=== PATIENT | male | born 1930 | race Caucasian/White ===

== ENCOUNTER → 2017-05-28 | Outpatient (CLI) | payer MEDICARE, BC ==
[2017-05-28 10:16] LABS: Appearance,Urine Clear (Clear); Bilirubin,Urine Negative (Negative); Blood,Urine Negative (Negative); Color,Urine Yellow; Glucose,Urine (UA) Negative (Negative); Ketones,Urine Negative (Negative); Leukocyte Esterase,Urine Negative (Negative); Nitrite,Urine Negative (Negative); Protein,Urine Negative (Negative); Specific Gravity,Urine 1.016 (1.001-1.035); Urobilinogen,Urine <2.0 mg/dL (<2.0)
[2017-05-28 10:23] LABS: HCT 44.7 % (39.0-53.0); HGB 14.5 gm/dL (13.0-17.5); MCH 32.6 pg (25.0-35.0); MCHC 32.5 g/dL (31.0-37.0); MCV 100.1 fL (80.0-100.0); Mean Platelet Volume 6.9; Platelet Count 351 k/uL (150-450); RBC 4.47 m/uL (4.30-5.90); RDW 12.8 % (11.5-15.5); WBC 9.4 k/uL (3.8-10.6)
[2017-05-28 10:28] LABS: Albumin 4.2 g/dL (3.5-5.0); Calcium 10.2 mg/dL (8.4-10.2); Phosphorus 3.9 mg/dL (2.5-4.5); Potassium 4.8 mmol/L (3.5-5.1); Total Bilirubin 0.8 mg/dL (0.2-1.3); Total Protein 7.2 g/dL (6.3-8.2)
== END | disposition home or self-care (01) ==
LOC: LABWHC1 09:57
PROVIDERS: ATTEND Internal Medicine
DX: D64.9 Anemia, unspecified (principal); N39.0 Urinary tract infection, site not specified; E83.39 Other disorders of phosphorus metabolism
CPT/HCPCS: 36415; 80053; 81003; 84100; 85027

== ENCOUNTER → 2017-06-10 | Outpatient (CLI) | payer MEDICARE, BC ==
--- NOTE | 2017-06-10 11:03 | US ---
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 EXAM MEASUREMENTS: Right Kidney: 9.4 x 4.8 x 5.0 cm Left Kidney: 10.7 x 4.3 x 4.5 cm Right Kidney: No hydronephrosis or masses seen Left Kidney: No hydronephrosis or masses seen Bladder: wnl Bilateral Jets seen: Yes There is no evidence for hydronephrosis at this point in time. No nephrolithiasis is seen. No rocky s are identified. The urinary bladder is anechoic. Bilateral ureteral jets are seen. IMPRESSION: No significant abnormality appreciated.
== END | disposition home or self-care (01) ==
LOC: RADUSWWP 09:59
PROVIDERS: ATTEND Internal Medicine
DX: N18.3 Chronic kidney disease, stage 3 (moderate) (principal)
CPT/HCPCS: 76770

== ENCOUNTER → 2017-08-18 | Outpatient (CLI) | payer MEDICARE, BC ==
[2017-08-18 11:46] LABS: Appearance,Urine Clear (Clear); Bilirubin,Urine Negative (Negative); Blood,Urine Negative (Negative); Color,Urine Yellow; Glucose,Urine (UA) Negative (Negative); Ketones,Urine Negative (Negative); Leukocyte Esterase,Urine Negative (Negative); Nitrite,Urine Negative (Negative); PH, Urine 6.5 (5.0-8.0); Protein,Urine Trace (Negative); Specific Gravity,Urine 1.022 (1.001-1.035); Urobilinogen,Urine <2.0 mg/dL (<2.0)
[2017-08-18 11:48] LABS: HCT 42.9 % (39.0-53.0); HGB 14.9 gm/dL (13.0-17.5); MCH 33.3 pg (25.0-35.0); MCHC 34.6 g/dL (31.0-37.0); MCV 96.3 fL (80.0-100.0); Mean Platelet Volume 7.3; Platelet Count 307 k/uL (150-450); RBC 4.46 m/uL (4.30-5.90); RDW 12.4 % (11.5-15.5); WBC 7.5 k/uL (3.8-10.6)
[2017-08-18 12:05] LABS: Total Protein 7.1 g/dL (6.3-8.2); Uric Acid 7.4 mg/dL (3.5-8.5)
[2017-08-18 12:06] LABS: Phosphorus 2.9 mg/dL (2.5-4.5); Potassium 4.5 mmol/L (3.5-5.1); Total Bilirubin 0.7 mg/dL (0.2-1.3)
[2017-08-18 15:04] LABS: Iron Saturation 36.19 (15.00-50.00)
[2017-08-18 15:15] LABS: Vitamin D 25 Hydroxy 37.2 ng/mL (30.0-100.0)
[2017-08-18 17:05] LABS: Parathyroid Hormone Intact 24.3 pg/mL (14.0-72.0)
== END | disposition home or self-care (01) ==
LOC: LABWHC1 11:08
PROVIDERS: ATTEND Psychiatry & Neurology Neurology
DX: R80.9 Proteinuria, unspecified (principal); N39.0 Urinary tract infection, site not specified; E55.9 Vitamin D deficiency, unspecified; M10.9 Gout, unspecified; E21.3 Hyperparathyroidism, unspecified; N18.3 Chronic kidney disease, stage 3 (moderate); D63.1 Anemia in chronic kidney disease; R25.1 Tremor, unspecified
CPT/HCPCS: 36415; 80053; 81003; 82043; 82306; 82570; 82728; 83540; 83550; 83735; 83970; 84100; 84550; 85027

== ENCOUNTER → 2017-08-28 | Outpatient (CLI) | payer MEDICARE, BC ==
--- NOTE | 2017-08-28 11:59 | MR ---
EXAMINATION TYPE: MR brain wo/w con DATE OF EXAM: 08/28/2017 COMPARISON: NONE HISTORY: Malignant neoplasm of cerebrum, brain tumor per order. Tremors per patient. TECHNIQUE: Multiplanar, multisequence images of the brain and brainstem is performed without and with IV contras t, utilizing 9 mL intravenous Gadavist . FINDINGS: Diffusion weighted images demonstrate no evidence of a recent infarct or other diffusion ab normality. There is no worrisome extra-axial fluid collection. There is ventricular and sulcal promi nence consistent with diffuse age-related cerebral atrophy. Degree of ventricular prominence is sligh tly out of proportion to degree of sulcal effacement and a normal pressure hydrocephalus is not exclu ded. There are scattered foci of T2 hyperintensity seen throughout the superficial and deep white mat ter most prominent with more confluent appearance in the periventricular white matter. Lesions are li mandi on basis of product of chronic small vessel ischemic change in patient this age. There is presum ed artifact inferiorly anterior left cerebellum on FLAIR images without suspicious signal seen on T1, postcontrast, or T2-weighted images. Midline structures demonstrate normal morphology. The craniocervical junction appears within normal limits. Post contrast images demonstrate no abnormal enhancement. The dural venous sinuses appear pa tent. The visualized sinuses are clear and the globes are intact. IMPRESSION: Fairly moderate diffuse cerebral atrophy and moderate to severe chronic small vessel isch emic change. No suspicious enhancing mass. Correlation with old outside CT or MRI would be beneficial to assess ventricular sizes.
== END | disposition home or self-care (01) ==
LOC: RADMRIMAIN 10:35
PROVIDERS: ATTEND Psychiatry & Neurology Neurology
DX: C71.9 Malignant neoplasm of brain, unspecified (principal); G31.9 Degenerative disease of nervous system, unspecified; I67.82 Cerebral ischemia
CPT/HCPCS: 70553; A9581

== ENCOUNTER → 2017-12-24 | Outpatient (CLI) | payer MEDICARE, BC ==
[2017-12-24 09:42] LABS: HCT 40.4 % (39.0-53.0); HGB 13.5 gm/dL (13.0-17.5); MCHC 33.5 g/dL (31.0-37.0); MCV 98.5 fL (80.0-100.0); Mean Platelet Volume 6.8; Platelet Count 275 k/uL (150-450); WBC 7.8 k/uL (3.8-10.6)
[2017-12-24 10:06] LABS: Albumin 4.1 g/dL (3.5-5.0); Calcium 9.4 mg/dL (8.4-10.2); Potassium 4.9 mmol/L (3.5-5.1); Total Bilirubin 0.9 mg/dL (0.2-1.3); Total Protein 6.6 g/dL (6.3-8.2)
[2017-12-24 18:05] LABS: Hemoglobin A1C 5.9 % (4.0-6.0)
== END | disposition home or self-care (01) ==
LOC: LABWHC1 08:27
PROVIDERS: ATTEND Internal Medicine
DX: I10 Essential (primary) hypertension (principal); E11.9 Type 2 diabetes mellitus without complications; E03.9 Hypothyroidism, unspecified; E78.2 Mixed hyperlipidemia
CPT/HCPCS: 36415; 80053; 80061; 83036; 84443; 85027

== ENCOUNTER → 2018-02-17 | Outpatient (CLI) | payer MEDICARE, BC ==
[2018-02-17 09:11] LABS: Appearance,Urine Clear (Clear); Bilirubin,Urine Negative (Negative); Blood,Urine Negative (Negative); Color,Urine Yellow; Glucose,Urine (UA) Negative (Negative); Ketones,Urine Negative (Negative); Leukocyte Esterase,Urine Negative (Negative); Nitrite,Urine Negative (Negative); PH, Urine 5.5 (5.0-8.0); Protein,Urine Negative (Negative); Specific Gravity,Urine 1.015 (1.001-1.035); Urobilinogen,Urine <2.0 mg/dL (<2.0)
[2018-02-17 09:12] LABS: HCT 43.6 % (39.0-53.0); HGB 14.5 gm/dL (13.0-17.5); MCH 32.9 pg (25.0-35.0); MCHC 33.3 g/dL (31.0-37.0); Mean Platelet Volume 7.9; Platelet Count 317 k/uL (150-450); RBC 4.41 m/uL (4.30-5.90); RDW 12.4 % (11.5-15.5); WBC 8.5 k/uL (3.8-10.6)
[2018-02-17 09:21] LABS: Albumin 3.8 g/dL (3.5-5.0); Calcium 9.4 mg/dL (8.4-10.2); Magnesium 2.1 mg/dL (1.6-2.3); Phosphorus 3.7 mg/dL (2.5-4.5); Potassium 4.4 mmol/L (3.5-5.1); Total Bilirubin 0.8 mg/dL (0.2-1.3); Total Protein 6.6 g/dL (6.3-8.2); Uric Acid 6.9 mg/dL (3.5-8.5)
[2018-02-17 17:35] LABS: Iron Saturation 37.5 (15.00-50.00)
[2018-02-17 17:43] LABS: Vitamin D 25 Hydroxy 47.1 ng/mL (30.0-100.0)
== END | disposition home or self-care (01) ==
LOC: LABWHC1 08:06
PROVIDERS: ATTEND Nurse Practitioner Family
DX: N18.3 Chronic kidney disease, stage 3 (moderate) (principal); D63.1 Anemia in chronic kidney disease; N39.0 Urinary tract infection, site not specified; R80.9 Proteinuria, unspecified; E21.3 Hyperparathyroidism, unspecified; E55.9 Vitamin D deficiency, unspecified; M10.9 Gout, unspecified
CPT/HCPCS: 36415; 80053; 81003; 82043; 82306; 82570; 82728; 83540; 83550; 83735; 83970; 84100; 84550; 85027

== ENCOUNTER 2019-01-13 11:42 | Observation (INO) | payer MEDICARE, BC ==
[2019-01-13 13:03] LABS: Basophils # (A) 0.1 k/uL (0-0.2); Basophils % (A) 1 %; Eosinophils # (A) 0.2 k/uL (0-0.7); Eosinophils % (A) 2 %; HCT 42.8 % (39.0-53.0); HGB 14.3 gm/dL (13.0-17.5); Lymphocytes # (A) 1.1 k/uL (1.0-4.8); Lymphocytes % (A) 11 %; MCH 33.2 pg (25.0-35.0); MCHC 33.4 g/dL (31.0-37.0); MCV 99.2 fL (80.0-100.0); Mean Platelet Volume 7.8; Monocytes # (A) 0.6 k/uL (0-1.0); Monocytes % (A) 6 %; Neutrophils # (A) 7.6 k/uL (1.3-7.7); Neutrophils % (A) 77 %; Platelet Count 361 k/uL (150-450); RBC 4.31 m/uL (4.30-5.90); RDW 13.8 % (11.5-15.5)
[2019-01-13 13:09] LABS: Albumin 4.6 g/dL (3.5-5.0); Calcium 9.8 mg/dL (8.4-10.2); Magnesium 2.2 mg/dL (1.6-2.3); Potassium 4.9 mmol/L (3.5-5.1); Total Bilirubin 0.8 mg/dL (0.2-1.3); Total Protein 7.8 g/dL (6.3-8.2)
[2019-01-13 13:11] LABS: Partial Thromboplastin Time 23.8 sec (22.0-30.0); Prothrombin Time 10.3 sec (9.0-12.0)
--- NOTE | 2019-01-13 13:25 | ED ---
SOB HPI - General Chief Complaint: Shortness of Breath Stated Complaint: SOB Time Seen by Provider: 01/13/19 12:25 Source: patient, RN notes reviewed Mode of arrival: ambulatory Limitations: no limitations - History of Present Illness Initial Comments: 88-year-old male presents emergency Department chief complaint of worsening shortness breath, leg heaviness. Patient states that he saw his PCP recently and is scheduled for an echocardiogram. Patient states that he's been having worsening symptoms. Primary notices after he walks. Distance that he feels more short of breath and he also states that his legs feel swollen her heavy. Patient states he does take a diuretic currently. Denies any chest pain or palpitations no URI symptoms denies any headache or dizziness. Denies fevers or chills. Patient has no complaints of chest pain, abdominal pain. - Related Data Home Medications Medication Instructions Recorded Confirmed Aspirin 81 mg PO DAILY 11/02/14 01/13/19 Metoprolol Succinate [Toprol XL] 50 mg PO DAILY 11/02/14 01/13/19 Multivit-Min/FA/Lycopene/Lut 1 tab PO HS 11/02/14 01/13/19 [Centrum Silver Tablet] Triamterene-Hctz 37.5-25Mg 1 tab PO Q48H 11/28/14 01/13/19 [Maxzide 37.5-25] Cholecalciferol [Vitamin D3 (25 1,000 unit PO HS 01/13/19 01/13/19 Mcg = 1000 Iu)] Levothyroxine Sodium [Synthroid] 88 mcg PO DAILY 01/13/19 01/13/19 Lisinopril [Zestril] 5 mg PO DAILY 01/13/19 01/13/19 Ranitidine HCl [Zantac] 150 mg PO BID 01/13/19 01/13/19 Tamsulosin [Flomax] 0.4 mg PO HS 01/13/19 01/13/19 hydrALAZINE HCL [Apresoline] 25 mg PO BID 01/13/19 01/13/19 Allergies Allergy/AdvReac Type Severity Reaction Status Date / Time No Known Allergies Allergy Verified 01/13/19 12:33 Review of Systems ROS Statement: Those systems with pertinent positive or pertinent negative responses have been documented in the HPI. ROS Other: All systems not noted in ROS Statement are negative. Past Medical History Past Medical History: Diabetes Mellitus, GERD/Reflux, Hyperlipidemia, Hypertension, Osteoarthritis (OA), Skin Disorder, Thyroid Disorder Additional Past Medical History / Comment(s): rt torn muscle and rotator cuff problem, eczema, gallstones, History of Any Multi-Drug Resistant Organisms: None Reported Past Surgical History: Appendectomy, Bowel Resection, Cholecystectomy, Heart Catheterization Additional Past Surgical History / Comment(s): 1996 colectomy for benign polyp, bilateral cataract removal with lens implants. heart cath 11/02/14 Past Anesthesia/Blood Transfusion Reactions: No Reported Reaction Past Psychological History: No Psychological Hx Reported Smoking Status: Former smoker Past Alcohol Use History: Occasional Past Drug Use History: None Reported - Past Family History Father Family Medical History: Coronary Artery Disease (CAD) Additional Family Medical History / Comment(s): Father lived to be 89yrs old. He had heart problems. Mother Family Medical History: AFIB General Exam Limitations: no limitations General appearance: alert, in no apparent distress Head exam: Present: atraumatic, normocephalic, normal inspection Eye exam: Present: normal appearance, PERRL, EOMI. Absent: scleral icterus, conjunctival injection, periorbital swelling ENT exam: Present: normal exam, normal oropharynx, mucous membranes moist Neck exam: Present: normal inspection, full ROM. Absent: tenderness, meningis mus, lymphadenopathy Respiratory exam: Present: normal lung sounds bilaterally. Absent: respiratory distress, wheezes, rales, rhonchi, stridor Cardiovascular Exam: Present: normal rhythm, tachycardia, normal heart sounds. Absent: systolic murmur, diastolic murmur, rubs, gallop, clicks Neurological exam: Present: alert Skin exam: Present: warm, dry, intact, normal color. Absent: rash Course Vital Signs 01/13/19 11:54 Temperature 97.6 F Pulse Rate 110 H Respiratory 18 Rate Blood Pressure 113/70 O2 Sat by Pulse 97 Oximetry Medical Decision Making - Medical Decision Making 88-year-old male presented for progressive worsening Dyspnea. Workup at That This Time Is Negative Though Patient Has Seen PCP As Scheduled for an Echocardiogram. Patient Will Be Admitted for Echo, Further Evaluation by Possible Pulmonology and Cardiology. - Lab Data Result diagrams: 01/13/19 12:51 01/13/19 12:51 Lab Results 01/13/19 01/13/19 01/13/19 Range/Units 12:51 12:51 12:51 WBC 10.0 (3.8-10.6) k/uL RBC 4.31 (4.30-5.90) m/uL Hgb 14.3 (13.0-17.5) gm/dL Hct 42.8 (39.0-53.0) % MCV 99.2 (80.0-100.0) fL MCH 33.2 (25.0-35.0) pg MCHC 33.4 (31.0-37.0) g/dL RDW 13.8 (11.5-15.5) % Plt Count 361 (150-450) k/uL Neutrophils % 77 % Lymphocytes % 11 % Monocytes % 6 % Eosinophils % 2 % Basophils % 1 % Neutrophils # 7.6 (1.3-7.7) k/uL Lymphocytes # 1.1 (1.0-4.8) k/uL Monocytes # 0.6 (0-1.0) k/uL Eosinophils # 0.2 (0-0.7) k/uL Basophils # 0.1 (0-0.2) k/uL PT (9.0-12.0) sec INR (<1.2) APTT (22.0-30.0) sec Sodium 137 (137-145) mmol/L Potassium 4.9 (3.5-5.1) mmol/L Chloride 102 (98-107) mmol/L Carbon Dioxide 25 (22-30) mmol/L Anion Gap 10 mmol/L BUN 35 H (9-20) mg/dL Creatinine 1.51 H (0.66-1.25) mg/dL Est GFR (CKD-EPI)AfAm 48 (>60 ml/min/1.73 sqM) Est GFR (CKD-EPI)NonAf 41 (>60 ml/min/1.73 sqM) Glucose 159 H (74-99) mg/dL Calcium 9.8 (8.4-10.2) mg/dL Magnesium 2.2 (1.6-2.3) mg/dL Total Bilirubin 0.8 (0.2-1.3) mg/dL AST 45 (17-59) U/L ALT 34 (21-72) U/L Alkaline Phosphatase 74 (38-126) U/L Troponin I (0.000-0.034) ng/mL NT-Pro-B Natriuret Pep 299 pg/mL Total Protein 7.8 (6.3-8.2) g/dL Albumin 4.6 (3.5-5.0) g/dL 01/13/19 01/13/19 Range/Units 12:51 12:51 WBC (3.8-10.6) k/uL RBC (4.30-5.90) m/uL Hgb (13.0-17.5) gm/dL Hct (39.0-53.0) % MCV (80.0-100.0) fL MCH (25.0-35.0) pg MCHC (31.0-37.0) g/dL RDW (11.5-15.5) % Plt Count (150-450) k/uL Neutrophils % % Lymphocytes % % Monocytes % % Eosinophils % % Basophils % % Neutrophils # (1.3-7.7) k/uL Lymphocytes # (1.0-4.8) k/uL Monocytes # (0-1.0) k/uL Eosinophils # (0-0.7) k/uL Basophils # (0-0.2) k/uL PT 10.3 (9.0-12.0) sec INR 1.0 (<1.2) APTT 23.8 (22.0-30.0) sec Sodium (137-145) mmol/L Potassium (3.5-5.1) mmol/L Chloride (98-107) mmol/L Carbon Dioxide (22-30) mmol/L Anion Gap mmol/L BUN (9-20) mg/dL Creatinine (0.66-1.25) mg/dL Est GFR (CKD-EPI)AfAm (>60 ml/min/1.73 sqM) Est GFR (CKD-EPI)NonAf (>60 ml/min/1.73 sqM) Glucose (74-99) mg/dL Calcium (8.4-10.2) mg/dL Magnesium (1.6-2.3) mg/dL Total Bilirubin (0.2-1.3) mg/dL AST (17-59) U/L ALT (21-72) U/L Alkaline Phosphatase (38-126) U/L Troponin I <0.012 (0.000-0.034) ng/mL NT-Pro-B Natriuret Pep pg/mL Total Protein (6.3-8.2) g/dL Albumin (3.5-5.0) g/dL - EKG Data EKG Comments: EKG performed at 14:01 cm room with first-degree block left axis deviation rate of 88 [place] 234 QRS 80 QTC is QTC 358/433 Disposition Clinical Impression: Exertional dyspnea Disposition: ADMITTED IP TO THIS HOSP Condition: Fair Referrals: Denny Vallecillo MD [Primary Care Provider] - 1-2 days
--- NOTE | 2019-01-13 13:47 | XR ---
EXAMINATION TYPE: XR chest 2V DATE OF EXAM: 01/13/2019 COMPARISON: 09/19/2015 INDICATION: Difficulty breathing TECHNIQUE: Frontal and lateral views of the chest are obtained. FINDINGS: The heart size is a prominent. The pulmonary vasculature is normal. Bibasilar infiltrates are present. This may be chronic in nature.. There is hyperinflation flattenin g the diaphragms compatible COPD IMPRESSION: 1. Bibasilar infiltrates which are likely chronic. Correlate for pulmonary fibrosis. 2. COPD
--- NOTE | 2019-01-13 17:07 | NM ---
EXAMINATION TYPE: NM pul vent and perfuse DATE OF EXAM: 01/13/2019 COMPARISON: Radiograph same day HISTORY: 88-year-old male shortness of breath, exertional dyspnea TECHNIQUE: Utilizing inhalation of 30.1 mCi Tc 99m DTPA aerosol and intravenous injection of 5.12 mC i of Tc 99m MAA, ventilation and perfusion images are acquired post injection in multiple projections . FINDINGS: Normal radiotracer distribution is noted in the lungs. There is no evidence of mismatched defects. IMPRESSION: Very low probability for pulmonary embolus.
[2019-01-13 19:22] VITALS: BMI 27.5
[2019-01-13] MEDS: ACETAMINOPHEN TAB 325 MG TAB PO PRN (21:08)
[2019-01-13] MEDS: hydrALAZINE HCL 25 MG TAB PO SCH (21:09)
[2019-01-13] MEDS: MULTIVITAMINS, THERA 1 EACH TAB PO SCH (21:09)
[2019-01-13] MEDS: TAMSULOSIN 0.4 MG CAP.ER.24H PO SCH (21:09)
[2019-01-13] MEDS: FAMOTIDINE 20 MG TAB PO SCH (21:09)
[2019-01-13] MEDS: CHOLECALCIFEROL 1,000 UNIT TAB PO SCH (21:09)
[2019-01-14] MEDS: LEVOTHYROXINE 88 MCG TAB PO SCH (06:13)
[2019-01-14] MEDS: ASPIRIN 81 MG PO SCH (07:32)
[2019-01-14] MEDS: hydrALAZINE HCL 25 MG TAB PO SCH ×2 (07:33→20:47)
[2019-01-14] MEDS: FAMOTIDINE 20 MG TAB PO SCH (07:33)
[2019-01-14] MEDS: METOPROLOL SUCCINATE (ER) 50 MG TAB.ER.24H PO SCH (07:33)
[2019-01-14 08:50] LABS: Albumin 4.2 g/dL (3.5-5.0); Calcium 9.6 mg/dL (8.4-10.2); Potassium 4.8 mmol/L (3.5-5.1); Total Bilirubin 1.2 mg/dL (0.2-1.3); Total Protein 7.3 g/dL (6.3-8.2)
[2019-01-14] MEDS ORDERED: TRIAMTERENE-HCTZ 37.5-25MG 1 EACH TAB PO SCH (09:00)
[2019-01-14] MEDS ORDERED: LISINOPRIL 5 MG TAB PO SCH (09:00)
[2019-01-14 09:08] LABS: Basophils # (A) 0.1 k/uL (0-0.2); Basophils % (A) 2 %; Eosinophils # (A) 0.4 k/uL (0-0.7); Eosinophils % (A) 5 %; HGB 14.1 gm/dL (13.0-17.5); Lymphocytes # (A) 1.5 k/uL (1.0-4.8); Lymphocytes % (A) 18 %; MCH 33.1 pg (25.0-35.0); MCHC 33.5 g/dL (31.0-37.0); Monocytes # (A) 0.6 k/uL (0-1.0); Monocytes % (A) 7 %; Neutrophils # (A) 5.3 k/uL (1.3-7.7); Neutrophils % (A) 65 %; Platelet Count 359 k/uL (150-450); RBC 4.24 m/uL (4.30-5.90); WBC 8.1 k/uL (3.8-10.6)
--- NOTE | 2019-01-14 10:04 | P.HPIM ---
History of Present Illness H&P Date: 01/14/19 This is an 88-year-old male patient who presented with complaints of leg pain and shortness of breath. Patient reports that the shortness of breath has been occurring for quite some time patient reports that he started to experience bilateral leg heaviness yesterday while driving. Patient has a past medical history of diabetes mellitus, GERD, hyperlipidemia, hypertension, osteoporosis, skin disorder, hypothyroidism and ex-smoker. Chest x-ray completed in ER showing bibasilar infiltrates which are likely chronic correlate for pulmonary fibrosis. COPD. EKG completed showing sinus rhythm with first-degree AV block with premature subcu breath ventricular complexes and premature ventricular complexes and fusion complexes. VQ scan completed showing very low probability for pulmonary embolus. Initial troponin 0.012. BNP level 299. Pulmonary and cardiology services consulted. Will order venous Doppler and uric acid level. At this time patient denies any chest pain or shortness of breath. Patient denies nausea vomiting or diarrhea. Patient denies any urinary burning or frequency Review of Systems Visit for HPI otherwise unremarkable Past Medical History Past Medical History: Diabetes Mellitus, GERD/Reflux, Hyperlipidemia, Hypertension, Osteoarthritis (OA), Skin Disorder, Thyroid Disorder Additional Past Medical History / Comment(s): rt torn muscle and rotator cuff problem, eczema, gallstones, History of Any Multi-Drug Resistant Organisms: None Reported Past Surgical History: Appendectomy, Bowel Resection, Cholecystectomy, Heart Catheterization Additional Past Surgical History / Comment(s): 1996 colectomy for benign polyp, bilateral cataract removal with lens implants. heart cath 11/02/14 Past Anesthesia/Blood Transfusion Reactions: No Reported Reaction Past Psychological History: No Psychological Hx Reported Additional Psychological History / Comment(s): Pt lives alone. He is independent. He walks 2 miles a day normally. He drives a car. He uses no assistive device or home care agency. Smoking Status: Former smoker Past Alcohol Use History: Occasional Additional Past Alcohol Use History / Comment(s): Pt states he started smoking at age 21 yrs old and quit in 1992. He smoked 1 ppd at most. Pt likes to have one alcoholic beverage a day. Past Drug Use History: None Reported - Past Family History Father Family Medical History: Coronary Artery Disease (CAD) Additional Family Medical History / Comment(s): Father lived to be 89yrs old. He had heart problems. Mother Family Medical History: AFIB Medications and Allergies Home Medications Medication Instructions Recorded Confirmed Type Aspirin 81 mg PO DAILY 11/02/14 01/13/19 History Metoprolol Succinate [Toprol XL] 50 mg PO DAILY 11/02/14 01/13/19 History Multivit-Min/FA/Lycopene/Lut 1 tab PO HS 11/02/14 01/13/19 History [Centrum Silver Tablet] Triamterene-Hctz 37.5-25Mg 1 tab PO Q48H 11/28/14 01/13/19 History [Maxzide 37.5-25] Cholecalciferol [Vitamin D3 (25 1,000 unit PO HS 01/13/19 01/13/19 History Mcg = 1000 Iu)] Levothyroxine Sodium [Synthroid] 88 mcg PO DAILY 01/13/19 01/13/19 History Lisinopril [Zestril] 5 mg PO DAILY 01/13/19 01/13/19 History Ranitidine HCl [Zantac] 150 mg PO BID 01/13/19 01/13/19 History Tamsulosin [Flomax] 0.4 mg PO HS 01/13/19 01/13/19 History hydrALAZINE HCL [Apresoline] 25 mg PO BID 01/13/19 01/13/19 History Allergies Allergy/AdvReac Type Severity Reaction Status Date / Time No Known Allergies Allergy Verified 01/13/19 12:33 Physical Exam Vitals: Vital Signs Temp Pulse Pulse Resp BP BP Pulse Ox 01/14/19 08:43 78 01/14/19 05:04 97.6 F 57 L 16 112/60 94 L 01/13/19 22:23 97.9 F 71 18 140/66 94 L 01/13/19 15:18 77 17 134/78 97 01/13/19 11:54 97.6 F 110 H 18 113/70 97 Intake and Output 01/13/19 01/14/19 01/14/19 22:59 06:59 14:59 Intake Total 250 Balance 250 Intake: Oral 250 Other: Voiding Method Toilet Toilet # Voids 3 2 Head normocephalic Neck supple Lungs clear to auscultation bilaterally no wheezing or crackles Heart regular rate and rhythm S1-S2, no rub or gallop Abdomen is soft nontender nondistended positive bowel sounds no hepatosplenomegaly Extremities no edema Neuro alert and orientated to 3 Results CBC & Chem 7: 01/14/19 07:55 01/14/19 07:55 Labs: Abnormal Lab Results - Last 24 Hours (Table) 01/13/19 01/14/19 01/14/19 Range/Units 12:51 07:55 07:55 RBC 4.24 L (4.30-5.90) m/uL BUN 35 H 30 H (9-20) mg/dL Creatinine 1.51 H 1.52 H (0.66-1.25) mg/dL Glucose 159 H 120 H (74-99) mg/dL Thrombosis Risk Factor Assmnt - Choose All That Apply Any of the Below Risk Factors Present?: Yes Each Factor Represents 1 point: Abnormal pulmonary function (COPD), Obesity (BMI >25) Other Risk Factors: Yes Each Risk Factor Represents 3 Points: Age 75 years or older Other congenital or acquired thrombophilia - If yes, enter type in comment: No Thrombosis Risk Factor Assessment Total Risk Factor Score: 5 Thrombosis Risk Factor Assessment Level: High Risk Assessment and Plan Assessment: 1. Exertional dyspnea. Chest x-ray completed showing bibasilar infiltrates which are likely chronic. Correlate for pulmonary fibrosis. COPD. VQ scan completed showing very low probability for pulmonary embolus. Pulmonary services have been consulted. Discussed case with pulmonary services will order high-resolution CT prior to d/c. cleared for discharge from pulmonary standpoint. Cardiology services have been consulted. 2-D echo has been ordered 2. Bilateral leg pain venous. Will order venous Doppler to rule out DVT. Uric acid level ordered. BNP level 299 3. Acute kidney injury. Creatinine elevated at 1.52 bun 30. Patient's Maxzide currently on hold. On 12/24/2018 creatinine 1.43 in office 4. History of GERD 5. History of hyperlipidemia 6. History of essential hypertension 7. History of osteoarthritis 8. History of hypothyroidism. Maintained on Synthroid 9. Ex-smoker. DVT prophylaxis heparin. GI prophylaxis Pepcid Time with Patient: Greater than 30 (Greater than 60% of the total time spent in counseling and coordination of care. I performed an examination of the patient and discussed their management with the Nurse Practitioner. I have reviewed the Nurse Practitioner's notes and agree with the documented findings and plan of care)
--- NOTE | 2019-01-14 11:19 | CT ---
EXAMINATION TYPE: CT chest wo con DATE OF EXAM: 01/14/2019 COMPARISON: Chest x-ray from yesterday and older study 2015 HISTORY: Short of breath CT DLP: 953.20 mGycm. Automated Exposure Control for Dose Reduction was Utilized. TECHNIQUE: CT scan of the thorax is performed without IV contrast. High-resolution protocol with 1 m m sequences obtained in 10 mm intervals and supine and prone technique. FINDINGS: LUNGS: There is confirmation of suspected bilateral peripheral reticulation and fibrosis most promine nt in the lower lungs versus upper lungs with areas of calcification noted which correlates with x-ra ys. Overall x-rays show no marked progression from 2015. Some honeycombing in the periphery is identi fied. Mild central cylindrical bronchiectasis. No pleural effusion or pneumothorax. No obvious masses . MEDIASTINUM: Lack of IV contrast is noted to limit evaluation for mediastinal and especially hilar ad enopathy. There are no definitive greater than 1 cm hilar or mediastinal lymph nodes. No pericardia l effusion is seen. Moderate to severe three-vessel coronary artery calcification which is noted anna ed underlying coronary artery disease. Heart size upper limits of normal. OTHER: Moderate multilevel spurring in the thoracic spine. Cortical thinning in both kidneys. 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 No suspicious acute pul monary process.
--- NOTE | 2019-01-14 11:52 | ECHOF ---
Referral Reason:Exertional dyspnea MEASUREMENTS -------- HEIGHT: 180.3 cm WEIGHT: 90.7 kg BP: 112/60 RVIDd: 2.9 cm (< 3.3) IVSd: 0.9 cm (0.6 - 1.1) LVIDd: 5.8 cm (3.9 - 5.3) LVPWd: 1.1 cm (0.6 - 1.1) IVSs: 1.6 cm LVIDs: 3.5 cm LVPWs: 1.7 cm EDV(Teich): 166 ml ESV(Teich): 52 ml EF(Teich): 69 % %FS: 39 % SV(Teich): 114 ml Ao Diam: 3.4 cm (2.0 - 3.7) AV Cusp: 2.0 cm (1.5 - 2.6) LA Diam: 3.0 cm (2.7 - 3.8) MV E Karlos: 0.50 m/s MV DecT: 151 ms MV A Karlos: 0.95 m/s MV E/A Ratio: 0.53 RAP: 5.00 mmHg RVSP: 19.79 mmHg FINDINGS -------- Sinus rhythm. This was a technically difficult study with suboptimal views. The left ventricular size is normal. Left ventricular wall thickness is normal. Overall left vent ricular systolic function is mildly impaired with, an EF between 45 - 50 %. Mid inferoseptal LV wal l motion is hypokinetic. The right ventricle is normal in size. The left atrial size is normal. The right atrial size is normal. The aortic valve is trileaflet and appears structurally normal. The mitral valve is normal. There is trace mitral regurgitation. The tricuspid valve appears structurally normal. Trace tricuspid regurgitation present. Right frandy tricular systolic pressure is normal at < 35 mmHg. There is no pulmonic regurgitation present. The aortic root size is normal. IVC Not well visulized. There is a small, generalized pericardial effusion present. 5.0mg of Lumason was utilized for enhancement of images CONCLUSIONS -------- 1. Sinus rhythm. 2. This was a technically difficult study with suboptimal views. 3. The left ventricular size is normal. 4. Left ventricular wall thickness is normal. 5. Overall left ventricular systolic function is mildly impaired with, an EF between 45 - 50 %. 6. The right ventricle is normal in size. 7. The left atrial size is normal. 8. The right atrial size is normal. 9. 5.0mg of Lumason was utilized for enhancement of images 10. The aortic valve is trileaflet and appears structurally normal. 11. The mitral valve is normal. 12. There is trace mitral regurgitation. 13. The tricuspid valve appears structurally normal. 14. Trace tricuspid regurgitation present. 15. Right ventricular systolic pressure is normal at < 35 mmHg. 16. There is no pulmonic regurgitation present. 17. The aortic root size is normal. 18. IVC Not well visulized. 19. There is a small, generalized pericardial effusion present. WIRE ROLLER: Asia Bledsoe RDCS
--- NOTE | 2019-01-14 14:13 | US ---
EXAMINATION TYPE: US venous doppler duplex LE DATE OF EXAM: 01/14/2019 1:44 PM COMPARISON: NONE CLINICAL HISTORY: leg pain r/o DVT. Bilateral leg pain, exam done portable. SIDE PERFORMED: Bilateral TECHNIQUE: The lower extremity deep venous system is examined utilizing real time linear array sonog tony with graded compression, doppler sonography and color-flow sonography. VESSELS IMAGED: External Iliac Vein (EIV) Common Femoral Vein Deep Femoral Vein Greater Saphenous Vein * Femoral Vein Popliteal Vein Small Saphenous Vein * Proximal Calf Veins (* superficial vessels) Grayscale, color doppler, spectral doppler imaging performed of the deep veins of the lower extremiti es. There is normal flow, compressibility, vascular waveforms. Right Leg: Appears negative for DVT Left Leg: Appears negative for DVT IMPRESSION: No sonographic evidence of deep venous thrombosis within either bilateral lower extremit y.
--- NOTE | 2019-01-14 15:23 | P.CRDCN ---
History of Present Illness History of present illness: This is a pleasant 88 showed male past medical history significant for diabetes mellitus, hyperlipidemia and hypertension. He denies history of coronary artery disease and does not follow regularly with a buttermaker helper. We have been asked to see him in consultation for exertional shortness of breath. He came to the hospital secondary to bilateral lower extremity weakness and nu mbness. He states he was leaving the fruit stand and attempting to hit the gas on his vehicle but his feet felt very heavy like he couldn't lift them to push the gas. He continues to feel this way with no real improvement. He also describes that over the past few months he has been increasingly short of breath with exertion. He is in the process of getting this worked up in the outpatient setting with Dr. Vallecillo. He is seen and examined laying flat in bed in no acute distress. He denies active chest discomfort, shortness of breath, dizziness or palpitations. EKG reveals sinus mechanism, first-degree AV block, left axis deviation, poor R- wave progression and nonspecific ST abnormalities inferiorly. Chest x-ray reveals bibasilar infiltrates [place] chronic probably secondary to pulmonary fibrosis and COPD. CT of the chest obtained reveals moderate to severe peripheral reticular fibrotic changes most prominent in the lower lungs. VQ scan low probability for PE. Bilateral lower extremity Doppler negative for DVT. Echocardiogram obtained reveals mildly impaired LV systolic function with ejection fraction 45-50%. Small generalized pericardial effusion. Current cardiac medications include aspirin 81 mg daily, lisinopril 5 mg daily, Toprol 50 mg daily, hydralazine 25 mg twice a day and Maxzide 37.5/25 mg every other day. Laboratory data reviewed, WBC 8.1, hemoglobin 14.1, platelets 359, sodium 138, potassium 4.8, creatinine 1.52, magnesium 2.2, cardiac enzymes negative 2, proBNP 299. At the time of my exam: CONSTITUTIONAL: Denies fever. Denies chills. EYES: Denies blurred vision. Denies vision changes. Denies eye pain. EARS, NOSE, MOUTH & THROAT: Denies headache. Denies sore throat. Denies ear pain. CARDIOVASCULAR: Denies chest pain. Denies shortness of breath. Denies orthopnea. Denies PND. Denies palpitations. RESPIRATORY: Denies cough. GASTROINTESTINAL: Denies abdominal pain. Denies diarrhea. Denies constipation. Denies nausea. Denies vomiting. MUSCULOSKELETAL: Denies myalgias. INTEGUMENTARY: Denies pruitis. Denies rash. NEUROLOGIC: Denies numbness. Denies tingling. Denies weakness. PSYCHIATRIC: Denies anxiety. Denies depression. ENDOCRINE: Denies fatigue. Denies weight change. Denies polydipsia. Denies polyurina. GENITOURINARY: Denies burning, hematuria or urgency with micturation. HEMATOLOGIC: Denies history of anemia. Denies bleeding. Blood pressure 149/76 heart rate 73 afebrile maintaining oxygen saturation on room air GENERAL: This is a 88-year-old male in no apparent distress at the time of my examination. HEENT: Head is atraumatic, normocephalic. Pupils are equal, round. Sclerae anicteric. Conjunctivae are clear. Mucous membranes of the mouth are moist. Neck is supple. There is no jugular venous distention. No carotid bruit is heard. LUNGS: Coarse rhonchi scattered. No no wheezes or rales. No chest wall tenderness is noted on palpation or with deep breathing. HEART: Regular rate and rhythm without murmurs, rubs or gallops. S1 and S2 heard. ABDOMEN: Soft, nontender. Bowel sounds are heard. No organomegaly noted. EXTREMITIES: No evidence of peripheral edema and no calf tenderness noted. VASCULAR: Radial and dorsalis pedis pulses palpated, no evidence of clubbing. NEUROLOGIC: Patient is awake, alert and oriented x3. ASSESSMENT Exertional shortness of breath. Clinically the patient is euvolemic with no evidence to suggest heart failure. Bilateral lower extremity weakness Hypertension Dyslipidemia Diabetes mellitus, currently diet controlled Chronic kidney disease PLAN Clinically the patient is euvolemic with no evidence to suggest heart failure. Echocardiogram has been reviewed. Continue beta blockers and resume ABBI inhibitor as previously ordered. Symptoms likely related to underlying pulmonary fibrosis. The patient has been seen in consultation by pulmonary service and the patient states he is going to follow-up as an outpatient. Stable for discharge from a cardiac perspective. Follow-up in the office with Dr. Landin upon discharge. Nurse Practitioner note has been reviewed, I agree with a documented findings and plan of care. Patient was seen and examined. Past Medical History Past Medical History: Diabetes Mellitus, GERD/Reflux, Hyperlipidemia, Hyperte nsion, Osteoarthritis (OA), Skin Disorder, Thyroid Disorder Additional Past Medical History / Comment(s): rt torn muscle and rotator cuff problem, eczema, gallstones, History of Any Multi-Drug Resistant Organisms: None Reported Past Surgical History: Appendectomy, Bowel Resection, Cholecystectomy, Heart Catheterization Additional Past Surgical History / Comment(s): 1996 colectomy for benign polyp, bilateral cataract removal with lens implants. heart cath 11/02/14 Past Anesthesia/Blood Transfusion Reactions: No Reported Reaction Past Psychological History: No Psychological Hx Reported Additional Psychological History / Comment(s): Pt lives alone. He is independent. He walks 2 miles a day normally. He drives a car. He uses no assistive device or home care agency. Smoking Status: Former smoker Past Alcohol Use History: Occasional Additional Past Alcohol Use History / Comment(s): Pt states he started smoking at age 21 yrs old and quit in 1992. He smoked 1 ppd at most. Pt likes to have one alcoholic beverage a day. Past Drug Use History: None Reported - Past Family History Father Family Medical History: Coronary Artery Disease (CAD) Additional Family Medical History / Comment(s): Father lived to be 89yrs old. He had heart problems. Mother Family Medical History: AFIB Medications and Allergies Home Medications Medication Instructions Recorded Confirmed Type Aspirin 81 mg PO DAILY 11/02/14 01/13/19 History Metoprolol Succinate [Toprol XL] 50 mg PO DAILY 11/02/14 01/13/19 History Multivit-Min/FA/Lycopene/Lut 1 tab PO HS 11/02/14 01/13/19 History [Centrum Silver Tablet] Triamterene-Hctz 37.5-25Mg 1 tab PO Q48H 11/28/14 01/13/19 History [Maxzide 37.5-25] Cholecalciferol [Vitamin D3 (25 1,000 unit PO HS 01/13/19 01/13/19 History Mcg = 1000 Iu)] Levothyroxine Sodium [Synthroid] 88 mcg PO DAILY 01/13/19 01/13/19 History Lisinopril [Zestril] 5 mg PO DAILY 01/13/19 01/13/19 History Ranitidine HCl [Zantac] 150 mg PO BID 01/13/19 01/13/19 History Tamsulosin [Flomax] 0.4 mg PO HS 01/13/19 01/13/19 History hydrALAZINE HCL [Apresoline] 25 mg PO BID 01/13/19 01/13/19 History Allergies Allergy/AdvReac Type Severity Reaction Status Date / Time No Known Allergies Allergy Verified 01/13/19 12:33 Physical Exam Vitals: Vital Signs Temp Pulse Pulse Resp BP BP Pulse Ox 01/14/19 11:16 97.5 F L 73 16 149/76 92 L 01/14/19 08:43 78 01/14/19 08:00 78 16 01/14/19 05:04 97.6 F 57 L 16 112/60 94 L 01/13/19 22:23 97.9 F 71 18 140/66 94 L 01/13/19 15:18 77 17 134/78 97 Intake and Output 01/14/19 01/14/19 01/14/19 06:59 14:59 22:59 Intake Total 620 Balance 620 Intake: Oral 620 Other: Voiding Method Toilet Toilet # Voids 3 4 Weight 88.1 kg Results 01/14/19 07:55 01/14/19 07:55 Cardiac Enzymes 01/14/19 01/14/19 Range/Units 07:55 07:55 AST 43 (17-59) U/L Troponin I 0.012 (0.000-0.034) ng/mL CBC 01/14/19 Range/Units 07:55 WBC 8.1 (3.8-10.6) k/uL RBC 4.24 L (4.30-5.90) m/uL Hgb 14.1 (13.0-17.5) gm/dL Hct 42.0 (39.0-53.0) % Plt Count 359 (150-450) k/uL Comprehensive Metabolic Panel 01/14/19 Range/Units 07:55 Sodium 138 (137-145) mmol/L Potassium 4.8 (3.5-5.1) mmol/L Chloride 105 (98-107) mmol/L Carbon Dioxide 23 (22-30) mmol/L BUN 30 H (9-20) mg/dL Creatinine 1.52 H (0.66-1.25) mg/dL Glucose 120 H (74-99) mg/dL Calcium 9.6 (8.4-10.2) mg/dL AST 43 (17-59) U/L ALT 42 (21-72) U/L Alkaline Phosphatase 70 (38-126) U/L Total Protein 7.3 (6.3-8.2) g/dL Albumin 4.2 (3.5-5.0) g/dL Current Medications Generic Name Dose Route Start Last Admin Trade Name Freq PRN Reason Stop Dose Admin Acetaminophen 650 mg 01/13/19 20:47 01/13/19 21:08 Tylenol Tab PO 650 mg Q6HR PRN Administration Fever and/ or Pain Aspirin 81 mg 01/14/19 09:00 01/14/19 07:32 Aspirin PO 81 mg DAILY MYA Administration Cholecalciferol 1,000 unit 01/13/19 21:00 01/13/19 21:09 Vitamin D3 (25 Mcg = 1000 Iu) PO 1,000 unit HS MYA Administration Famotidine 20 mg 01/13/19 21:00 01/14/19 07:33 Pepcid PO 20 mg DAILY MYA Administration Heparin Sodium (Porcine) 5,000 unit 01/14/19 21:00 Heparin SQ Q12HR MYA Hydralazine HCl 25 mg 01/13/19 21:00 01/14/19 07:33 Apresoline PO 25 mg BID MYA Administration Levothyroxine Sodium 88 mcg 01/14/19 06:30 01/14/19 06:13 Synthroid PO 88 mcg DAILY@0630 MYA Administration Metoprolol Succinate 50 mg 01/14/19 09:00 01/14/19 07:33 Toprol Xl PO 50 mg DAILY MYA Administration Multivitamins 1 each 01/13/19 21:00 01/13/19 21:09 Theragran PO 1 each HS MYA Administration Tamsulosin HCl 0.4 mg 01/13/19 21:00 01/13/19 21:09 Flomax PO 0.4 mg HS MYA Administration Triamterene/HCTZ 1 each 01/15/19 09:00 Maxzide-25 PO Q48H MYA Intake and Output 01/14/19 01/14/19 01/14/19 06:59 14:59 22:59 Intake Total 620 Balance 620 Intake: Oral 620 Other: Voiding Method Toilet Toilet # Voids 3 4 Weight 88.1 kg Patient Weight 01/15/19 06:59 Weight 88.1 kg 01/14/19 07:55 01/14/19 07:55
[2019-01-14 16:02] LABS: Appearance,Urine Clear (Clear); Bilirubin,Urine Negative (Negative); Blood,Urine Negative (Negative); Color,Urine Yellow; Glucose,Urine (UA) Negative (Negative); Ketones,Urine Negative (Negative); Leukocyte Esterase,Urine Negative (Negative); Nitrite,Urine Negative (Negative); PH, Urine 6.5 (5.0-8.0); Protein,Urine Negative (Negative); Specific Gravity,Urine 1.013 (1.001-1.035); Urobilinogen,Urine <2.0 mg/dL (<2.0)
--- NOTE | 2019-01-14 16:14 | CONS ---
CONSULTATION PULMONARY/CRITICAL CARE CONSULTATION: DATE OF CONSULTATION: 01/14/2019 REASON FOR CONSULTATION: Shortness of breath. This is an 88-year-old male who presents to the emergency department for heaviness in his right foot and leg. In addition, he admits to being short of breath. Anyway, we are consulted primarily for the shortness of breath. It is not an acute event. It has been going on for months and even years. It seems to be progressive in nature. It is certainly bothersome much more when he exerts himself. He denies other complaints other than a very mild nonproductive cough. Denies any phlegm production. He does not cough up any blood. No fever or chills. Nothing to suggest an infection. The patient is currently being evaluated by the primary service for his initial reason for coming into the hospital, which was that over the last couple of days when he went out to get into the car and drive, he noticed that his right foot felt heavier, like he did not have any control over it. For that reason, he came in to be evaluated. He denies any chest pain or pressure. Denies any other neurologic complaints. No numbness or tingling. No garbled speech. No weakness on any part of his body. The patient has never seen a crib attendant before. He had a chest x-ray which suggest some interstitial disease and a V/Q scan that was predictably nondiagnostic. HOME MEDICATIONS: Home medications include: 1. Aspirin. 2. Toprol. 3. Multiple vitamins. 4. Maxzide. 5. Vitamin D3. 6. Levothyroxine. 7. Lisinopril. 8. Ranitidine. 9. Flomax. 10.Hydralazine. ALLERGIES: DENIED. MEDICAL HISTORY: Medical history includes: 1. Diabetes mellitus. 2. GERD. 3. Hyperlipidemia. 4. Hypertension. 5. DJD. 6. Hypothyroidism. 7. Eczema. 8. Gallstones. 9. Rotator cuff injury. SURGICAL HISTORY: Surgical history includes: 1. Appendectomy. 2. Bowel resection. 3. Cholecystectomy. 4. Heart catheterization. 5. Bilateral cataract surgery with lens implants. 6. Heart catheterization back in October 2014. SOCIAL HISTORY: Positive for about 35, maybe 40 years of tobacco use. He has not smoked recently. He smoked about a pack or less a day. He denies any significant alcohol use and denies completely any illicit drug use. FAMILY HISTORY: Positive for father with CAD. Father apparently had a number of heart problems. Mother apparently had a history of atrial fibrillation. REVIEW OF SYSTEMS: CONSTITUTIONAL: Negative. NEUROLOGIC: Heaviness in his right foot. HEENT: Negative. CARDIOVASCULAR: Negative. PULMONARY: Shortness of breath on exertion and dry cough. GI: Negative. : Negative. RHEUMATOLOGIC: Negative. IMMUNOLOGIC: Negative. ENDOCRINOLOGIC: Negative. DERMATOLOGIC: Negative. PHYSICAL EXAMINATION: VITAL SIGNS: Current vital signs are reviewed. Temperature is 97.6, heart rate 57, respiratory rate 16, blood pressure 112/60, mean 77, room-air saturation 94% to 95%. GENERAL: Appears in no acute distress. HEENT: HEENT examination is grossly unremarkable. Mucous membranes are moist. No oral lesions. NECK: Supple. Full range of motion. No adenopathy or thyromegaly. Neck veins are flat. CARDIOVASCULAR: Cardiovascular examination reveals regular rhythm and rate. Heart rate 78. S1, S2 normal. Heart sounds are distant. PULMONARY EXAMINATION: Pulmonary examination reveals some very fine bibasilar crackles. They are Velcro in nature. This could relate to fluid overload or interstitial lung disease. I do not hear any wheezes. Breath sounds are equal bilaterally. ABDOMEN: Soft. Bowel sounds are heard. EXTREMITIES: Intact. There is no cyanosis, clubbing or edema. SKIN: Without rash. NEUROLOGIC: Neurologic examination is brief but nonfocal. LABS: Reviewed. White count 8.1, hemoglobin 14.1, hematocrit 42.0, platelet count 359,000. PT, INR, PTT normal. Sodium, potassium, chloride, CO2 all normal. Anion gap is 10. BUN and creatinine were 30 and 1.52. N-terminal proBNP is 299. Cardiac enzymes negative x2. IMAGING: A chest x-ray done yesterday shows diffuse chronic infiltrates, possibly consistent with interstitial lung disease. There may also be a component of COPD. The lung scan was very low probability for pulmonary embolism. High-resolution CT scan does show some patchy areas of peripheral and basilar fibrotic changes. Will wait for the official report. Medications are reviewed. ASSESSMENT: 1. Chronic shortness of breath on exertion with chronic nonproductive cough; rule out interstitial lung disease/pulmonary fibrosis. 2. Vague right foot heaviness, noted when he was trying to drive, of unclear etiology or significance. 3. History of diabetes. 4. History of gastroesophageal reflux disease. 5. Previous history of tobacco use. 6. Hyperlipidemia. 7. Hypertension. 8. Osteoarthritis. 9. Eczema. 10.Hypothyroidism. 11.History of gallstones. 12.Rule out chronic obstructive pulmonary disease from previous tobacco use. PLAN: I gave the patient my card. I am going to go ahead and order a high-resolution CT scan. The patient may have pulmonary fibrosis. There also may be a component of COPD based on his previous tobacco history. Additional recommendations and suggestions are forthcoming. From the pulmonary standpoint, he could be discharged. Again, he will see me back in the office in followup. MMODL / IJN: [id number] / MIKE
[2019-01-14] MEDS: LISINOPRIL 5 MG TAB PO SCH (16:41)
[2019-01-14] MEDS: CHOLECALCIFEROL 1,000 UNIT TAB PO SCH (20:46)
[2019-01-14] MEDS: HEPARIN SODIUM,PORCINE 5,000 UNIT/ML 1 ML VIAL SQ SCH (20:46)
[2019-01-14] MEDS: TAMSULOSIN 0.4 MG CAP.ER.24H PO SCH (20:47)
[2019-01-14] MEDS: MULTIVITAMINS, THERA 1 EACH TAB PO SCH (20:47)
[2019-01-14] MEDS: ACETAMINOPHEN TAB 325 MG TAB PO PRN (20:49)
[2019-01-15] MEDS: LEVOTHYROXINE 88 MCG TAB PO SCH (06:24)
[2019-01-15 07:45] LABS: Basophils # (A) 0.1 k/uL (0-0.2); Basophils % (A) 1 %; Eosinophils # (A) 0.4 k/uL (0-0.7); Eosinophils % (A) 5 %; HCT 41.2 % (39.0-53.0); HGB 13.8 gm/dL (13.0-17.5); Lymphocytes # (A) 1.7 k/uL (1.0-4.8); Lymphocytes % (A) 22 %; MCH 33.6 pg (25.0-35.0); MCHC 33.5 g/dL (31.0-37.0); MCV 100.4 fL (80.0-100.0); Monocytes # (A) 0.6 k/uL (0-1.0); Monocytes % (A) 7 %; Neutrophils # (A) 4.7 k/uL (1.3-7.7); Neutrophils % (A) 60 %; Platelet Count 307 k/uL (150-450); RDW 14.1 % (11.5-15.5); WBC 7.9 k/uL (3.8-10.6)
[2019-01-15 08:02] LABS: Albumin 4.1 g/dL (3.5-5.0); Calcium 9.3 mg/dL (8.4-10.2); Total Bilirubin 1.2 mg/dL (0.2-1.3); Total Protein 7.3 g/dL (6.3-8.2)
[2019-01-15 08:15] LABS: Potassium 5.4 mmol/L (3.5-5.1)
[2019-01-15] MEDS: hydrALAZINE HCL 25 MG TAB PO SCH (08:22)
[2019-01-15] MEDS: ASPIRIN 81 MG PO SCH (08:22)
[2019-01-15] MEDS: METOPROLOL SUCCINATE (ER) 50 MG TAB.ER.24H PO SCH (08:22)
[2019-01-15] MEDS: LISINOPRIL 5 MG TAB PO SCH (08:22)
[2019-01-15] MEDS: FAMOTIDINE 20 MG TAB PO SCH (08:22)
[2019-01-15] MEDS: HEPARIN SODIUM,PORCINE 5,000 UNIT/ML 1 ML VIAL SQ SCH (08:22)
[2019-01-15] MEDS ORDERED: TRIAMTERENE-HCTZ 37.5-25MG 1 EACH TAB PO SCH (09:00)
[2019-01-15] MEDS ORDERED: SODIUM POLYSTYRENE SULFONATE 15 GM/60 ML BOTTLE PO STA (09:40)
--- NOTE | 2019-01-15 11:13 | P.PN ---
Subjective Progress Note Date: 01/15/19 Principal diagnosis: Chronic shortness of breath on exertion with chronic nonproductive cough. Suspect pulmonary fibrosis. This is a very pleasant 88-year-old gentleman seen again today in follow-up on the regular medical floor. He is currently sitting up in a chair at the bed side. Awake and alert in no acute distress. He is breathing a bit easier today as compared to yesterday. Currently maintaining good O2 saturations in the 90s on room air. He's been afebrile. Hemodynamically stable. White count 7.9. Hemoglobin 13.8. Creatinine 1.59. Computed tomography scan of the chest did confirm moderate to severe peripheral reticular fibrotic changes most prominent in the lower lungs with areas of calcification and honeycombing most likely interstitial pulmonary fibrosis. No acute pulmonary process. Objective - Vital Signs Vital signs: Vital Signs Temp 97.5 F L 01/15/19 05:00 Pulse 73 01/15/19 08:00 Resp 18 01/15/19 08:00 BP 111/67 01/15/19 05:00 Pulse Ox 92 L 01/15/19 05:00 Intake & Output 01/14/19 01/15/19 01/15/19 18:59 06:59 18:59 Intake Total 1100 1200 Balance 1100 1200 Weight 88.1 kg Intake: Oral 1100 1200 Other: Voiding Method Toilet Toilet Toilet # Voids 4 2 # Bowel Movements 1 - Exam GENERAL EXAM: Alert, pleasant 88-year-old gentleman, comfortable in no apparent distress. On room air. HEAD: Normocephalic. EYES: Normal reaction of pupils, equal size. NOSE: Clear with pink turbinates. THROAT: No erythema or exudates. NECK: No masses, no JVD. CHEST: No chest wall deformity. LUNGS: Equal air entry with coarse crackles in the bilateral bases. CVS: S1 and S2 normal with no audible murmur, regular rhythm. ABDOMEN: No hepatosplenomegaly, normal bowel sounds, no guarding or rigidity. SPINE: No scoliosis or deformity SKIN: No rashes CENTRAL NERVOUS SYSTEM: No focal deficits, tone is normal in all 4 extremities. EXTREMITIES: There is no peripheral edema. No clubbing, no cyanosis. Peripheral pulses are intact. - Labs CBC & Chem 7: 01/15/19 07:12 01/15/19 07:12 Labs: Abnormal Lab Results - Last 24 Hours (Table) 01/15/19 01/15/19 Range/Units 07:12 07:12 RBC 4.10 L (4.30-5.90) m/uL MCV 100.4 H (80.0-100.0) fL Potassium 5.4 H (3.5-5.1) mmol/L BUN 37 H (9-20) mg/dL Creatinine 1.59 H (0.66-1.25) mg/dL Assessment and Plan Assessment: Impression: #1 Acute on chronic hypoxic respiratory failure secondary to interstitial pulmonary fibrosis. No acute pulmonary process per CAT scan. #2 Vague right foot heaviness of unclear etiology. Dopplers of lower extremity negative for DVT. #3 Diabetes mellitus, type II. #4 Gastric esophageal reflux disease. #5 Previous history of chronic tobacco dependence. #6 Hyperlipidemia. #7 Hypertension. #8 Osteoarthritis. #9 eczema. #10 hypothyroidism. #11 History of gallstones. Plan: The patient was seen and evaluated by Dr. Dexter. He does have evidence of pulmonary fibrosis. He would benefit from an outpatient workup including full pulmonary function testing to evaluate the severity of his fibrosis and also rule out any component of chronic obstructive pulmonary disease secondary to previous chronic tobacco dependence. He is currently stable from the pulmonary standpoint and could we will see him on an as-needed basis. I, the cosigning physician, performed a history & physical examination of the patient. Lungs sounds with coarse crackles in the bilateral posterior bases. Maintaining good O2 saturations in the 90s on room air. I discussed the assessment and plan of care with my nurse practitioner, Telma Cabrera. I attest to the above note as dictated by her.
[2019-01-15 12:15] VITALS: BP 133/68; PULSE 70; RESP 17; TEMP 97.7
--- NOTE | 2019-01-15 13:51 | P.DS ---
Providers Date of admission: 01/13/19 14:44 Expected date of discharge: 01/15/19 Attending physician: Denny Vallecillo Consults: 01/13/19 15:40 Consult Physician Routine Consulting Provider: Chanel Pagan Consult Reason/Comments: shortness of breath Do you want consulting provider notified?: Yes 01/13/19 15:41 Consult Physician Routine Consulting Provider: David Dexter Consult Reason/Comments: shortness of breath Do you want consulting provider notified?: Yes Primary care physician: Denny Vallecillo [facility] Course: Discharge diagnosis 1. Exertional dyspnea. Chest x-ray completed showing bibasilar infiltrates which are likely chronic. Correlate for pulmonary fibrosis. COPD. VQ scan completed showing very low probability for pulmonary embolus. Pulmonary services have been consulted. Discussed case with pulmonary services will order high-resolution CT prior to d/c. cleared for discharge from pulmonary standpoint. 2-D echo completed showing an EF of 45-50%. Per cardiology patient showing no evidence to suggest heart failure recommendations include continuing beta jana and ABBI inhibitor likely due to underlining pulmonary fibrosis. Patient has been cleared for discharge from cardiac standpoint 2. Bilateral leg pain pain and heaviness. Uric acid level ordered. BNP level 299. Venous Doppler completed showing no sonographic evidence of deep vein thrombosis within either bilateral lower extremity. Uric acid 8.1. Patient started on allopurinol 100 mg daily 3. Acute kidney injury. Creatinine elevated at 1.52 bun 30. Patient's Maxzide currently on hold. On 12/24/2018 creatinine 1.43 in office. Maxzide will be continued on hold. Patient to follow-up with PCP repeat CMP ordered for 2 days 4. History of GERD 5. History of hyperlipidemia 6. History of essential hypertension 7. History of osteoarthritis 8. History of hypothyroidism. Maintained on Synthroid 9. Ex-smoker. 10. Hyperkalemia. Patient given dose of Kayexalate. Repeat CMP ordered for 2 days Hospital course This is an 88-year-old male patient who presented with complaints of leg pain and shortness of breath. Patient reports that the shortness of breath has been occurring for quite some time patient reports that he started to experience bilateral leg heaviness yesterday while driving. Patient has a past medical history of diabetes mellitus, GERD, hyperlipidemia, hypertension, osteoporosis, skin disorder, hypothyroidism and ex-smoker. Chest x-ray completed in ER showing bibasilar infiltrates which are likely chronic correlate for pulmonary fibrosis. COPD. EKG completed showing sinus rhythm with first-degree AV block with premature subcu breath ventricular complexes and premature ventricular complexes and fusion complexes. VQ scan completed showing very low probability for pulmonary embolus. Initial troponin 0.012. BNP level 299. Pulmonary and cardiology services consulted. Will order venous Doppler and uric acid level. At this time patient denies any chest pain or shortness of breath. Patient denies nausea vomiting or diarrhea. Patient denies any urinary burning or frequency. On 01/15/2019 patient's alert and ointment 3. Patient states he feels ready to be DC'd home. Patient has been evaluated and cleared by both cardiology and pulmonary services. Venous Doppler completed showing no DVT in bilateral lower extremities. Uric acid level 8.1. Patient started on allopurinol. Patient's creatinine elevated at 1.59 and bun 37. Potassium also elevated at 5.4. Max julissa has been DC'd. Patient to continue on small dose of ABBI inhibitor. Repeat CMP has been ordered for 3 days. Patient was given Kayexalate. Patient also given a dose of Xanax per PCP. At this time patient denies chest pain or shortness of breath. Patient denies nausea vomiting or diarrhea. Patient denies any urinary burning or frequency. I performed an examination of the patient and discussed their management with the Nurse Practitioner. I have reviewed the Nurse Practitioner's notes and agree with the documented findings and plan of care Patient Condition at Discharge: Stable Plan - Discharge Summary Discharge Rx Participant: No New Discharge Prescriptions: New Allopurinol [Zyloprim] 100 mg PO DAILY 30 Days #30 tab Continue Metoprolol Succinate [Toprol XL] 50 mg PO DAILY Aspirin 81 mg PO DAILY Multivit-Min/FA/Lycopene/Lut [Centrum Silver Tablet] 1 tab PO HS hydrALAZINE HCL [Apresoline] 25 mg PO BID Tamsulosin [Flomax] 0.4 mg PO HS Ranitidine HCl [Zantac] 150 mg PO BID Cholecalciferol [Vitamin D3 (25 Mcg = 1000 Iu)] 1,000 unit PO HS Lisinopril [Zestril] 5 mg PO DAILY Levothyroxine Sodium [Synthroid] 88 mcg PO DAILY Discontinued Triamterene-Hctz 37.5-25Mg [Maxzide 37.5-25] 1 tab PO Q48H Discharge Medication List Aspirin 81 mg PO DAILY 11/02/14 [History] Metoprolol Succinate [Toprol XL] 50 mg PO DAILY 11/02/14 [History] Multivit-Min/FA/Lycopene/Lut [Centrum Silver Tablet] 1 tab PO HS 11/02/14 [History] Cholecalciferol [Vitamin D3 (25 Mcg = 1000 Iu)] 1,000 unit PO HS 01/13/19 [History] Levothyroxine Sodium [Synthroid] 88 mcg PO DAILY 01/13/19 [History] Lisinopril [Zestril] 5 mg PO DAILY 01/13/19 [History] Ranitidine HCl [Zantac] 150 mg PO BID 01/13/19 [History] Tamsulosin [Flomax] 0.4 mg PO HS 01/13/19 [History] hydrALAZINE HCL [Apresoline] 25 mg PO BID 01/13/19 [History] Allopurinol [Zyloprim] 100 mg PO DAILY 30 Days #30 tab 01/15/19 [Rx] Follow up Appointment(s)/Referral(s): David Dexter DO [Doctor of Osteopathic Medicine] - 1 Week Denny Vallecillo MD [Primary Care Provider] - 1-2 days Chaz Landin MD [STAFF PHYSICIAN] - 2 Weeks Ambulatory/Diagnostic Orders: Comprehensive Metabolic Panel [LAB.AMB] Time Frame: 2 Days, Location: None Selected Activity/Diet/Wound Care/Special Instructions: Activity as tolerated Diet heart healthy low potassium Discharge Disposition: HOME SELF-CARE
[2019-01-16] MEDS ORDERED: ALLOPURINOL 100 MG TAB PO SCH (09:00)
== END 2019-01-15 15:36 | disposition home or self-care (01) ==
LOC: EC 11:42 → 3NMEDONC 14:44
PROVIDERS: ADMIT Internal Medicine; ATTEND Internal Medicine
DX: J84.112 Idiopathic pulmonary fibrosis (principal); J96.21 Acute and chronic respiratory failure with hypoxia; N17.9 Acute kidney failure, unspecified; I12.9 Hypertensive chronic kidney disease with stage 1 through stage 4 chronic kidney disease, or unspecified chronic kidney disease; N18.9 Chronic kidney disease, unspecified; E11.22 Type 2 diabetes mellitus with diabetic chronic kidney disease; E87.5 Hyperkalemia; M79.604 Pain in right leg; M79.605 Pain in left leg; K21.9 Gastro-esophageal reflux disease without esophagitis; E78.5 Hyperlipidemia, unspecified; E03.9 Hypothyroidism, unspecified; M19.90 Unspecified osteoarthritis, unspecified site; M81.0 Age-related osteoporosis without current pathological fracture; I44.0 Atrioventricular block, first degree; L30.9 Dermatitis, unspecified; E66.9 Obesity, unspecified; Z68.27 Body mass index [BMI] 27.0-27.9, adult; I31.3 Pericardial effusion (noninflammatory); Z87.891 Personal history of nicotine dependence; Z79.82 Long term (current) use of aspirin; Z79.890 Hormone replacement therapy; Z79.899 Other long term (current) drug therapy; Z90.49 Acquired absence of other specified parts of digestive tract; Z98.42 Cataract extraction status, left eye; Z98.41 Cataract extraction status, right eye; Z96.1 Presence of intraocular lens; Z86.010 Personal history of colon polyps; Z82.49 Family history of ischemic heart disease and other diseases of the circulatory system
CPT/HCPCS: 96372 ×2; 99285; 36415; 93005; 97162; 97166; 83880; 80053 ×3; 83735; 84550; 84484 ×2; 85025 ×3; 85610; 85730; 81003; 71046; 93970; 71250; 78582; G0378 ×3; C8929; A9540; A9567; J1644 ×2; Q9950; 93306

== ENCOUNTER → 2019-01-29 | Outpatient (CLI) | payer MEDICARE, BC ==
[2019-01-29 17:35] LABS: African American GFR (CKD) 41.4 (60.0-200.0); Albumin 4.2 g/dL (3.80-4.90); Anion Gap 8.7 mmol/L (4.00-12.00); BUN/Creat Ratio 25.29 Ratio (12.00-20.00); Calcium 9.4 mg/dL (8.7-10.3); Carbon Dioxide 25.3 mmol/L (21.6-31.8); Globulin 2.1 g/dL (1.6-3.3); Non-African American GFR(CKD) 35.7 (60.0-200.0); Potassium 4.5 mmol/L (3.5-5.5); Total Protein 6.3 g/dL (6.2-8.2)
== END | disposition home or self-care (01) ==
LOC: LABWHC1 08:56
PROVIDERS: ATTEND Internal Medicine
DX: E87.5 Hyperkalemia (principal); S37.009D Unspecified injury of unspecified kidney, subsequent encounter
CPT/HCPCS: 36415; 80053

== ENCOUNTER 2020-11-22 17:19 | Inpatient (IN) | payer MEDICARE, BC ==
[2020-11-22 18:25] LABS: Appearance,Urine Cloudy (Clear); Bilirubin,Urine Negative (Negative); Blood,Urine Negative (Negative); Color,Urine Yellow; Glucose,Urine (UA) Negative (Negative); Ketones,Urine Negative (Negative); Leukocyte Esterase,Urine Large (Negative); Mucus,Urine Occasional /hpf; Nitrite,Urine Negative (Negative); PH, Urine 5.5 (5.0-8.0); Protein,Urine 1+ (Negative); RBC,Urine 4 /hpf (0-5); Specific Gravity,Urine 1.025 (1.001-1.035); Squamous Epithelial Cell,Urine <1 /hpf (0-4); WBC,Urine 43 /hpf (0-5)
[2020-11-22] MEDS ORDERED: NITROFURANTOIN MONOHYD/M-CRYST 100 MG CAP PO STA (18:33)
--- NOTE | 2020-11-22 18:50 | ED ---
General Adult HPI - General Chief complaint: Urogenital Stated complaint: Trouble Urinating Time Seen by Provider: 11/22/20 17:31 Source: patient, RN notes reviewed, old records reviewed Mode of arrival: wheelchair Limitations: no limitations - History of Present Illness Initial comments: 89-year-old male presenting with increased urinary frequency, dysuria. Patient was seen at outside hospital after sustaining a fall. He had been worked up extensively and was admitted for several days. He was treated for urinary tract infection. However the culture according to the daughter had come back Enterococcus faecalis. He was not discharged on any antibiotics. He continues to have urinary frequency. No fever. No flank pain. No vomiting. - Related Data Home Medications Medication Instructions Recorded Confirmed Metoprolol Succinate [Toprol XL] 50 mg PO DAILY 11/02/14 11/22/20 Multivit-Min/FA/Lycopene/Lut 1 tab PO HS 11/02/14 11/22/20 [Centrum Silver Tablet] Cholecalciferol [Vitamin D3 (25 1,000 unit PO HS 01/13/19 11/22/20 Mcg = 1000 Iu)] Levothyroxine Sodium [Synthroid] 88 mcg PO DAILY 01/13/19 11/22/20 Tamsulosin [Flomax] 0.4 mg PO HS 01/13/19 11/22/20 hydrALAZINE HCL [Apresoline] 25 mg PO BID 01/13/19 11/22/20 ALPRAZolam [Xanax] 0.25 mg PO BID PRN 11/22/20 11/22/20 Famotidine [Pepcid] 20 mg PO BID 11/22/20 11/22/20 Furosemide [Lasix] 20 mg PO DAILY 11/22/20 11/22/20 Previous Rx's Medication Instructions Recorded allopurinoL [Zyloprim] 100 mg PO DAILY 30 Days #30 tab 01/15/19 Allergies Allergy/AdvReac Type Severity Reaction Status Date / Time No Known Allergies Allergy Verified 11/22/20 18:53 Review of Systems ROS Statement: Those systems with pertinent positive or pertinent negative responses have been documented in the HPI. ROS Other: All systems not noted in ROS Statement are negative. Past Medical History Past Medical History: Diabetes Mellitus, GERD/Reflux, Hyperlipidemia, Hypertension, Osteoarthritis (OA), Skin Disorder, Thyroid Disorder Additional Past Medical History / Comment(s): rt torn muscle and rotator cuff problem, eczema, gallstones, History of Any Multi-Drug Resistant Organisms: None Reported Past Surgical History: Appendectomy, Bowel Resection, Cholecystectomy, Heart Catheterization Additional Past Surgical History / Comment(s): 1996 colectomy for benign polyp, bilateral cataract removal with lens implants. heart cath 11/02/14 Past Anesthesia/Blood Transfusion Reactions: No Reported Reaction Past Psychological History: No Psychological Hx Reported Smoking Status: Former smoker Past Alcohol Use History: Occasional Past Drug Use History: None Reported - Past Family History Father Family Medical History: Coronary Artery Disease (CAD) Additional Family Medical History / Comment(s): Father lived to be 89yrs old. He had heart problems. Mother Family Medical History: AFIB General Exam Limitations: no limitations General appearance: alert, in no apparent distress Head exam: Present: atraumatic, normocephalic Eye exam: Present: normal appearance, PERRL ENT exam: Present: normal exam Neck exam: Present: normal inspection. Absent: tenderness, meningismus Respiratory exam: Present: normal lung sounds bilaterally. Absent: respiratory distress, wheezes Cardiovascular Exam: Present: regular rate, normal rhythm GI/Abdominal exam: Present: soft. Absent: distended, tenderness, guarding Extremities exam: Present: normal inspection. Absent: normal capillary refill, pedal edema Back exam: Present: CVA tenderness (L), other (Patient does have some ecchymosis, right upper back). Absent: CVA tenderness (R) Neurological exam: Present: alert. Absent: motor sensory deficit Psychiatric exam: Present: normal affect, normal mood Skin exam: Present: warm, dry, intact. Absent: cyanosis, diaphoretic Course Vital Signs 11/22/20 17:33 Temperature 98.1 F Pulse Rate 95 Respiratory 18 Rate Blood Pressure 151/75 O2 Sat by Pulse 95 Oximetry - Reevaluation(s) Reevaluation #1: 11/22/20 18:49 Bladder scan shows 30-50 mL, this is confirmed low volume bladder volume on bedside ultrasound. Medical Decision Making - Medical Decision Making 89-year-old male with urinary frequency, urgency. Initial concern for urinary retention, patient is not retaining urine. Bedside ultrasound shows a dec ompressed bladder. He has recent history of Enterococcus faecalis at outside institution. Not currently on antibiotics. He has an elevated white blood cell count, stable chronic kidney disease with a creatinine 1.2. Patient will be admitted for IV antibiotics, UTI, hydration. Case discussed with Dr. Vallecillo who will admit. - Lab Data Result diagrams: 11/22/20 18:20 11/22/20 18:20 Lab Results 11/22/20 11/22/20 11/22/20 Range/Units 17:58 18:20 18:20 WBC 18.7 H (3.8-10.6) k/uL RBC 4.05 L (4.30-5.90) m/uL Hgb 13.4 (13.0-17.5) gm/dL Hct 40.2 (39.0-53.0) % MCV 99.2 (80.0-100.0) fL MCH 33.0 (25.0-35.0) pg MCHC 33.3 (31.0-37.0) g/dL RDW 13.2 (11.5-15.5) % Plt Count 350 (150-450) k/uL MPV 8.2 Neutrophils % 84 % Lymphocytes % 7 % Monocytes % 5 % Eosinophils % 1 % Basophils % 1 % Neutrophils # 15.8 H (1.3-7.7) k/uL Lymphocytes # 1.4 (1.0-4.8) k/uL Monocytes # 1.0 (0-1.0) k/uL Eosinophils # 0.2 (0-0.7) k/uL Basophils # 0.1 (0-0.2) k/uL Sodium 138 (137-145) mmol/L Potassium 4.8 (3.5-5.1) mmol/L Chloride 104 (98-107) mmol/L Carbon Dioxide 26 (22-30) mmol/L Anion Gap 8 mmol/L BUN 33 H (9-20) mg/dL Creatinine 1.22 (0.66-1.25) mg/dL Est GFR (CKD-EPI)AfAm 61 (>60 ml/min/1.73 sqM) Est GFR (CKD-EPI)NonAf 53 (>60 ml/min/1.73 sqM) Glucose 123 H (74-99) mg/dL Calcium 8.8 (8.4-10.2) mg/dL Urine Color Yellow Urine Appearance Cloudy (Clear) Urine pH 5.5 (5.0-8.0) Ur Specific [place] 1.025 (1.001-1.035) Urine Protein 1+ H (Negative) Urine Glucose (UA) Negative (Negative) Urine Ketones Negative (Negative) Urine Blood Negative (Negative) Urine Nitrite Negative (Negative) Urine Bilirubin Negative (Negative) Urine Urobilinogen 2.0 (<2.0) mg/dL Ur Leukocyte Esterase Large H (Negative) Urine RBC 4 (0-5) /hpf Urine WBC 43 H (0-5) /hpf Ur Squamous Epith Cells <1 (0-4) /hpf Urine Mucus Occasional H (None) /hpf Disposition Clinical Impression: Leukocytosis, UTI (urinary tract infection) Disposition: ADMITTED IP TO THIS [facility] Condition: Stable Is patient prescribed a controlled substance at d/c from ED?: No Referrals: Denny Vallecillo MD [Primary Care Provider] - 1-2 days Decision to Admit Reason: Admit from EC Decision Date: 11/22/20 Decision Time: 19:54
[2020-11-22 18:57] LABS: Basophils # (A) 0.1 k/uL (0-0.2); Basophils % (A) 1 %; Eosinophils # (A) 0.2 k/uL (0-0.7); Eosinophils % (A) 1 %; HCT 40.2 % (39.0-53.0); HGB 13.4 gm/dL (13.0-17.5); Lymphocytes # (A) 1.4 k/uL (1.0-4.8); Lymphocytes % (A) 7 %; MCHC 33.3 g/dL (31.0-37.0); MCV 99.2 fL (80.0-100.0); Mean Platelet Volume 8.2; Monocytes % (A) 5 %; Neutrophils # (A) 15.8 k/uL (1.3-7.7); Neutrophils % (A) 84 %; Platelet Count 350 k/uL (150-450); RBC 4.05 m/uL (4.30-5.90); RDW 13.2 % (11.5-15.5); WBC 18.7 k/uL (3.8-10.6)
[2020-11-22 19:03] LABS: Calcium 8.8 mg/dL (8.4-10.2); Potassium 4.8 mmol/L (3.5-5.1)
[2020-11-22] MEDS ORDERED: VANCOMYCIN IV PER PHARMACY 1 EACH MISC MISCELLANE PRN (19:50)
[2020-11-22] MEDS ORDERED: NALOXONE 0.4 MG/ML 1 ML VIAL IV PRN (19:51)
[2020-11-22] MEDS ORDERED: cefTRIAXone IN SWFI 1,000 MG/10 ML SYRINGE IVP STA (19:51)
[2020-11-22] MEDS ORDERED: VANCOMYCIN 1,500 MG in SODIUM CHLORIDE 0.9% 250 ML IVPB STA (19:58)
[2020-11-22] MEDS: ACETAMINOPHEN TAB 325 MG TAB PO PRN (20:05)
[2020-11-22] MEDS: SODIUM CHLORIDE 0.9% 1,000 ML IV SCH (20:22)
[2020-11-23] MEDS: MELATONIN 5 MG TABLET PO SCH ×2 (00:54→21:37)
[2020-11-23] MEDS: ACETAMINOPHEN TAB 325 MG TAB PO PRN ×2 (01:03→21:37)
[2020-11-23] MEDS: METOPROLOL SUCCINATE (ER) 50 MG TAB.ER.24H PO SCH (08:14)
[2020-11-23] MEDS: hydrALAZINE HCL 25 MG TAB PO SCH ×2 (08:15→21:36)
[2020-11-23] MEDS: FUROSEMIDE 20 MG TAB PO SCH (08:15)
[2020-11-23] MEDS: allopurinoL 100 MG TAB PO SCH (08:16)
[2020-11-23] MEDS: LEVOTHYROXINE 88 MCG TAB PO SCH (08:16)
[2020-11-23] MEDS ORDERED: FAMOTIDINE 20 MG TAB PO SCH (09:00)
[2020-11-23] MEDS: SODIUM CHLORIDE 0.9% 1,000 ML IV SCH ×2 (12:45→21:37)
[2020-11-23] MEDS: PHENAZOPYRIDINE 100 MG TAB PO SCH (14:56)
--- NOTE | 2020-11-23 17:12 | P.HPIM ---
History of Present Illness H&P Date: 11/23/20 Landy Castillo, is an 89 year old male who presented to [facility] emergency room with a chief complaint of frequency with urination and pain with urination He was evaluated in the emergency room vital examination on presentation revealed a temperature of 98.1 pulse 95 respiration 18 blood pressure 151/75 pulse ox 95% on room air Laboratory data reveals a white blood count of 18.7 hemoglobin 13.4 platelet count 350 sodium 138 potassium 4.8 chloride 104 CO2 26 BUN 33 creatinine 1.22 urine analysis revealed large leukocytes with 43 white blood cells Testing in the emergency room revealed Patient was admitted to medical floor for further evaluation and treatment Past medical history is significant for recent fall with left shoulder injury patient was admitted to a hospital in [place], he had an extensive evaluation there was no evidence of any bone fracture, he had evidence of urinary tract infection, he also had evidence of a bladder calculus measured at 0.91.2 cm, his urine culture was positive for Enterobacter he was treated with IV antibiotic and was sent home without any oral antibiotics, his past medical history is also significant for history of hypertension, history of hyperlipidemia, history of hypothyroidism, history of gout, history of benign prostatic hypertrophy, history of gastroesophageal reflux disease, and history of osteoarthritis On review of systems Patient is alert and oriented 3 in no apparent distress he is complaining of frequency with urination and burning and pain with urination otherwise he denies any complaints there is no fever or chills no headache or dizziness no chest pain no shortness of breath no palpitation no cough no nausea or vomiting no abdominal pain no diarrhea no blood in the stools and no hematuria, there is no weakness or numbness in any of the extremities no change in vision speech or gait. Past Medical History Past Medical History: Diabetes Mellitus, GERD/Reflux, Hyperlipidemia, Hypertension, Osteoarthritis (OA), Skin Disorder, Thyroid Disorder Additional Past Medical History / Comment(s): rt torn muscle and rotator cuff problem, eczema, gallstones, History of Any Multi-Drug Resistant Organisms: None Reported Past Surgical History: Appendectomy, Bowel Resection, Cholecystectomy, Heart Catheterization Additional Past Surgical History / Comment(s): 1996 colectomy for benign polyp, bilateral cataract removal with lens implants. heart cath 11/02/14 Past Anesthesia/Blood Transfusion Reactions: No Reported Reaction Past Psychological History: No Psychological Hx Reported Additional Psychological History / Comment(s): Pt lives alone. He is independent. He walks 2 miles a day normally. He drives a car. He uses no assistive device or home care agency. Smoking Status: Former smoker Past Alcohol Use History: Occasional Additional Past Alcohol Use History / Comment(s): Pt states he started smoking at age 21 yrs old and quit in 1992. He smoked 1 ppd at most. Pt likes to have one alcoholic beverage a day. Past Drug Use History: None Reported - Past Family History Father Family Medical History: Coronary Artery Disease (CAD) Additional Family Medical History / Comment(s): Father lived to be 89yrs old. He had heart problems. Mother Family Medical History: AFIB Medications and Allergies Home Medications Medication Instructions Recorded Confirmed Type Metoprolol Succinate [Toprol XL] 50 mg PO DAILY 11/02/14 11/22/20 History Multivit-Min/FA/Lycopene/Lut 1 tab PO HS 11/02/14 11/22/20 History [Centrum Silver Tablet] Cholecalciferol [Vitamin D3 (25 1,000 unit PO HS 01/13/19 11/22/20 History Mcg = 1000 Iu)] Levothyroxine Sodium [Synthroid] 88 mcg PO DAILY 01/13/19 11/22/20 History Tamsulosin [Flomax] 0.4 mg PO HS 01/13/19 11/22/20 History hydrALAZINE HCL [Apresoline] 25 mg PO BID 01/13/19 11/22/20 History allopurinoL [Zyloprim] 100 mg PO DAILY 30 Days #30 tab 01/15/19 11/22/20 Rx ALPRAZolam [Xanax] 0.25 mg PO BID PRN 11/22/20 11/22/20 History Famotidine [Pepcid] 20 mg PO BID 11/22/20 11/22/20 History Furosemide [Lasix] 20 mg PO DAILY 11/22/20 11/22/20 History Allergies Allergy/AdvReac Type Severity Reaction Status Date / Time No Known Allergies Allergy Verified 11/22/20 18:53 Physical Exam Vitals: Vital Signs Temp Pulse Pulse Resp BP BP Pulse Ox 11/23/20 02:00 97.9 F 52 L 16 137/74 92 L 11/22/20 21:01 97.7 F 73 18 174/92 94 L 11/22/20 20:03 98.3 F 73 18 171/62 97 11/22/20 17:33 98.1 F 95 18 151/75 95 Intake and Output 11/22/20 11/23/20 11/23/20 22:59 06:59 14:59 Intake Total 150 Output Total 50 475 Balance 100 -475 Intake: Oral 150 Output: Urine 475 Post Void Residual 50 Other: Voiding Method Urinal Urinal # Voids 1 Weight 90.718 kg In general patient is alert and oriented x 3 in no distress HEENT head normocephalic and atraumatic Neck is supple no JVD no goiter no lymphadenopathy no carotid bruit Chest examination is clear to auscultation no crackles no wheezing Cardiac exam reveals regular heart sounds S1 and S2 no gallops no murmurs Abdomen is soft nontender no organomegaly with normal bowel sounds Extremity exam reveals no edema no cyanosis or clubbing Neurological examination reveals no gross focal deficits Results CBC & Chem 7: 11/22/20 18:20 11/22/20 18:20 Labs: Abnormal Lab Results - Last 24 Hours (Table) 11/22/20 11/22/20 11/22/20 Range/Units 17:58 18:20 18:20 WBC 18.7 H (3.8-10.6) k/uL RBC 4.05 L (4.30-5.90) m/uL Neutrophils # 15.8 H (1.3-7.7) k/uL BUN 33 H (9-20) mg/dL Glucose 123 H (74-99) mg/dL Urine Protein 1+ H (Negative) Ur Leukocyte Esterase Large H (Negative) Urine WBC 43 H (0-5) /hpf Urine Mucus Occasional H (None) /hpf Microbiology - Last 24 Hours (Table) 11/22/20 17:58 Urine Culture - Preliminary Urine,Voided Thrombosis Risk Factor Assmnt - Choose All That Apply Any of the Below Risk Factors Present?: Yes Each Factor Represents 1 point: Swollen legs (current) Other Risk Factors: Yes Each Risk Factor Represents 3 Points: Age 75 years or older Other congenital or acquired thrombophilia - If yes, enter type in comment: No Thrombosis Risk Factor Assessment Total Risk Factor Score: 4 Thrombosis Risk Factor Assessment Level: Moderate Risk Assessment and Plan Plan: Urinary tract infection, patient was admitted to medical floor he was started on IV Rocephin Recent diagnosis with large bladder stone will recheck ultrasound and consult urology Dehydration, with elevated BUN and creatinine was started on IV fluid and monitor closely Recent fall with left sided shoulder and ribs injury no evidence of fractures per evaluation at [facility] Underlying history of hypertension Underlying history of hypothyroidism Underlying history of hyperlipidemia Underlying history of gout History of diabetes mellitus patient used to be on oral hypoglycemic agents currently he is on diet control alone At this time patient is admitted to medical floor he was started on IV Rocephin, urine culture ordered results are still pending He was started on IV fluid for gentle hydration Recheck kidney and bladder ultrasound Consult urology Will follow closely
--- NOTE | 2020-11-23 17:15 | CONS ---
CONSULTATION DATE OF SERVICE: 11/23/2020 REASON FOR CONSULTATION: Enterococcus urinary tract infection. HISTORY OF PRESENT ILLNESS: The patient is an 89 -year-old male who was recently admitted at [facility] in [place]. Apparently the patient presented there with weakness, fall and did have urinary frequency. The patient was diagnosed with a possible urinary tract infection. He did receive a dose of antibiotic there. However, was not discharged on antibiotic subsequently. The patient continued to have symptoms with weakness. No energy. Pain to the left shoulder after he did have a fall. The patient did have a urinary frequency requested and had some burning and urination, but denies any suprapubic flank pain. The patient did have nausea and vomiting but none since then. The patient was evaluated by the ER physician. On arrival to the ER, the patient was afebrile. The patient did have white count of 18.7, creatinine was normal at 1.22. The patient did have a UA, large leukocyte esterase with 43 WBC. Cultures are pending. Patient was started on vancomycin. Infectious Disease was consulted for further management of antibiotic therapy. REVIEW OF SYSTEMS: Positive points have been mentioned in HPI. Rest of systems are negative. PAST MEDICAL HISTORY: Diabetes mellitus, gastroesophageal reflux disease, hypertension, hyperlipidemia, osteoarthritis, hypothyroidism. PAST SURGICAL HISTORY: Appendectomy, bowel resection, cholecystectomy, heart catheterization. SOCIAL HISTORY: Remote history of smoking. Occasionally drinks. No drug use. FAMILY HISTORY: Father with history of coronary artery disease. ALLERGIES: No known drug allergies. MEDICATIONS: The patient is currently on Tylenol, zyloprim, Xanax, Rocephin 1 g daily. He is on Pepcid, Lasix, hydralazine, Synthroid, melatonin, Toprol-XL, Narcan, Pyridium, Flomax and vancomycin. Pharmacy to dose. PHYSICAL EXAMINATION: Blood pressure is 110/53 with a pulse of 59, temperature 97.6. He is 94% on room air. GENERAL DESCRIPTION: The patient is an elderly male lying in bed in no distress. No tachypnea or accessory muscles of respiration use. HEENT: Examination shows no pallor or scleral icterus. Oral mucous membranes dry. NECK: Trachea central. No thyromegaly. LUNGS unlabored breathing. Clear to auscultation anteriorly. No wheeze or crackles. HEART S1, S2. Regular rate and rhythm. ABDOMEN: Soft, no tenderness. No guarding. No rigidity. EXTREMITIES: No edema of the feet. SKIN: No rash or mass palpable. NEUROLOGICAL: Patient is awake, alert, oriented x3. Mood and affect normal. LABS: Hemoglobin is 13.4, white count 18.7, BUN of 33, creatinine 1.22. Urine is positive. Culture pending. DIAGNOSTIC IMPRESSION AND PLAN: Patient presented to hospital with urinary frequency, difficulty urination with concern for a symptomatic urinary tract infection with recent urine culture done in the outpatient setting were positive for Enterococcus faecalis, possible penicillin sensitive pathogen. PLAN: 1. Discontinue vancomycin and Rocephin. 2. Start the patient on Unasyn 3 grams q.6 hours. 3. We will follow on his clinical condition and culture to further adjust medication if needed. Thank you for this consultation. Will follow this patient along with you. CASANDRAL / RYANN: [id number] /
[2020-11-23] MEDS: AMPICILLIN-SULBACTAM 3 GM in SODIUM CHLORIDE 0.9% 100 ML IVPB SCH ×2 (18:25→23:24)
--- NOTE | 2020-11-23 18:33 | US ---
EXAMINATION TYPE: US kidneys/renal and bladder DATE OF EXAM: 11/23/2020 COMPARISON: US kidneys June 10, 2017 CLINICAL HISTORY: BLADDER STONE. Bladder stone per order. EXAM MEASUREMENTS: Right Kidney: 10.8 x 5.1 x 4.8 cm Left Kidney: 11.5 x 4.5 x 5.5 cm Right Kidney: No hydronephrosis or masses seen Left Kidney: Very limited visibility. Bladder: Hyperechoic focus with twinkle artifact seen within the bladder: 1.3 x 1.0 x 0.6 cm. Bilateral Jets seen: No *Increased cortical echogenicity and right kidney on current study. Adjacent liver remains heterogene ously hyperechoic. Poor visualization of left kidney on current study. Poorly distended bladder. Lobu lation and trabeculation of the wall. Possible intraluminal calculus. Prominent prostate. IMPRESSION: Suboptimal study without right-sided hydronephrosis. Cannot exclude left-sided hydronephr osis on images saved. Intraluminal bladder calculus in poorly distended bladder confirmed. Probable u nderlying BPH.
[2020-11-23] MEDS ORDERED: MELATONIN 5 MG TABLET PO SCH (21:00)
[2020-11-23] MEDS: TAMSULOSIN 0.4 MG CAP.ER.24H PO SCH (21:36)
[2020-11-23] MEDS: CHOLECALCIFEROL 25 MCG (1000 IU) TABLET PO SCH (21:37)
[2020-11-23] MEDS: MULTIVITAMINS, THERA 1 EACH TAB PO SCH (21:37)
[2020-11-23] MEDS ORDERED: VANCOMYCIN 1,500 MG in SODIUM CHLORIDE 0.9% 250 ML IVPB SCH (23:00)
[2020-11-24] MEDS: ACETAMINOPHEN TAB 325 MG TAB PO PRN (03:34)
[2020-11-24] MEDS: LEVOTHYROXINE 88 MCG TAB PO SCH (05:47)
[2020-11-24] MEDS: AMPICILLIN-SULBACTAM 3 GM in SODIUM CHLORIDE 0.9% 100 ML IVPB SCH ×3 (05:47→16:35)
[2020-11-24] MEDS: FUROSEMIDE 20 MG TAB PO SCH (07:23)
[2020-11-24] MEDS: FAMOTIDINE 20 MG TAB PO SCH (07:24)
[2020-11-24] MEDS: allopurinoL 100 MG TAB PO SCH (07:24)
[2020-11-24] MEDS: METOPROLOL SUCCINATE (ER) 50 MG TAB.ER.24H PO SCH (07:24)
[2020-11-24] MEDS: hydrALAZINE HCL 25 MG TAB PO SCH ×3 (07:25→22:07)
[2020-11-24] MEDS: SODIUM CHLORIDE 0.9% 1,000 ML IV SCH (08:24)
[2020-11-24] MEDS: PHENAZOPYRIDINE 100 MG TAB PO SCH (08:25)
[2020-11-24 09:15] LABS: Basophils # (A) 0.12 X 10*3/uL (0.00-0.10); Basophils % (A) 1.1 %; Eosinophils # (A) 0.33 X 10*3/uL (0.04-0.35); Eosinophils % (A) 2.9 %; HGB 11.9 g/dL (13.0-17.0); Lymphocytes % (A) 10.7 %; MCH 33.1 pg (27.0-32.0); MCHC 33.1 g/dL (32.0-37.0); Mean Platelet Volume 11.1 fL (9.5-12.2); Monocytes # (A) 0.77 X 10*3/uL (0.20-1.00); Monocytes % (A) 6.9 %; Neutrophils # (A) 8.64 X 10*3/uL (1.80-7.70); Neutrophils % (A) 76.9 %; Platelet Count 325 X 10*3/uL (140-440); RDW 13.4 % (11.5-14.5); WBC 11.23 X 10*3/uL (4.50-10.00)
--- NOTE | 2020-11-24 09:54 | P.PN ---
Subjective Progress Note Date: 11/24/20 Landy Castillo, is an 89 year old male who presented to [facility] emergency room with a chief complaint of frequency with urination and pain with urination He was evaluated in the emergency room vital examination on presentation revealed a temperature of 98.1 pulse 95 respiration 18 blood pressure 151/75 pulse ox 95% on room air Laboratory data reveals a white blood count of 18.7 hemoglobin 13.4 platelet count 350 sodium 138 potassium 4.8 chloride 104 CO2 26 BUN 33 creatinine 1.22 urine analysis revealed large leukocytes with 43 white blood cells Testing in the emergency room revealed Patient was admitted to medical floor for further evaluation and treatment Past medical history is significant for recent fall with left shoulder injury patient was admitted to a hospital in [place], he had an extensive evaluation there was no evidence of any bone fracture, he had evidence of urinary tract infection, he also had evidence of a bladder calculus measured at 0.91.2 cm, his urine culture was positive for Enterobacter he was treated with IV antibiotic and was sent home without any oral antibiotics, his past medical history is also significant for history of hypertension, history of hyperlipidemia, history of hypothyroidism, history of gout, history of benign prostatic hypertrophy, history of gastroesophageal reflux disease, and history of osteoarthritis On review of systems Patient is alert and oriented 3 in no apparent distress he is complaining of frequency with urination and burning and pain with urination otherwise he denies any complaints there is no fever or chills no headache or dizziness no chest pain no shortness of breath no palpitation no cough no nausea or vomiting no abdominal pain no diarrhea no blood in the stools and no hematuria, there is no weakness or numbness in any of the extremities no change in vision speech or gait. On 11/24/2020 patient's alert and oriented 3. Patient's daughter is at bedside. Antibiotics adjusted to Unasyn per infectious disease with concerns of possible penicillin sensitive pathogen. Urology services have been consulted. At this time patient denies chest pain or shortness breath. Patient denies nausea vomiting or diarrhea. Patient denies any urinary burning or frequency urine. white blood cell improving to 11.23 Objective - Vital Signs Vital signs: Vital Signs Temp 97.6 F 11/24/20 07:50 Pulse 73 11/24/20 07:50 Resp 18 11/24/20 07:50 BP 161/82 11/24/20 07:50 Pulse Ox 92 L 11/24/20 07:50 Intake & Output 11/23/20 11/24/20 11/24/20 18:59 06:59 18:59 Intake Total 240 Balance 240 Intake: Oral 240 Other: Voiding Method Toilet Toilet Toilet Urinal Urinal # Voids 4 4 # Bowel Movements 1 - Exam In general patient is alert and oriented x 3 in no distress HEENT head normocephalic and atraumatic Neck is supple no JVD no goiter no lymphadenopathy no carotid bruit Chest examination is clear to auscultation no crackles no wheezing Cardiac exam reveals regular heart sounds S1 and S2 no gallops no murmurs Abdomen is soft nontender no organomegaly with normal bowel sounds Extremity exam reveals no edema no cyanosis or clubbing Neurological examination reveals no gross focal deficits - Labs CBC & Chem 7: 11/24/20 05:22 11/22/20 18:20 Labs: Abnormal Lab Results - Last 24 Hours (Table) 11/24/20 Range/Units 05:22 WBC 11.23 H (4.50-10.00) X 10*3/uL RBC 3.60 L (4.40-5.60) X 10*6/uL Hgb 11.9 L (13.0-17.0) g/dL Hct 36.0 L (39.6-50.0) % MCV 100.0 H (80.0-97.0) fL MCH 33.1 H (27.0-32.0) pg Immature Gran # 0.17 H (0.00-0.04) X 10*3/uL Neutrophils # 8.64 H (1.80-7.70) X 10*3/uL Basophils # 0.12 H (0.00-0.10) X 10*3/uL Microbiology - Last 24 Hours (Table) 11/22/20 20:01 Blood Culture - Preliminary Blood No Growth after 24 hours 11/22/20 17:58 Urine Culture - Final Urine,Voided Assessment and Plan Plan: Urinary tract infection, patient was admitted to medical floor he was started on IV Rocephin. Antibiotics adjusted to Unasyn per ID Recent diagnosis with large bladder stone will recheck ultrasound and consult urology Dehydration, with elevated BUN and creatinine was started on IV fluid and monitor closely Recent fall with left sided shoulder and ribs injury no evidence of fractures per evaluation at [facility] Underlying history of hypertension Underlying history of hypothyroidism Underlying history of hyperlipidemia Underlying history of gout History of diabetes mellitus patient used to be on oral hypoglycemic agents currently he is on diet control alone DVT prophylaxis Lovenox. GI prophylaxis Protonix Infectious disease and urology services following Antibiotics adjusted to Unasyn per ID Ultrasound of bladder and renal completed Blood and urine culture ordered
[2020-11-24 10:38] LABS: African American GFR (CKD) 69.1 (60.0-200.0); Albumin/Globulin Ratio 1.43 (1.60-3.17); Anion Gap 9.2 mmol/L (4.00-12.00); BUN/Creat Ratio 24.55 Ratio (12.00-20.00); Calcium 7.8 mg/dL (8.7-10.3); Carbon Dioxide 22.8 mmol/L (21.6-31.8); Globulin 2.1 g/dL (1.6-3.3); Non-African American GFR(CKD) 59.6 (60.0-200.0); Potassium 4.3 mmol/L (3.5-5.5); Total Bilirubin 0.7 mg/dL (0.2-1.2); Total Protein 5.1 g/dL (6.2-8.2)
--- NOTE | 2020-11-24 18:46 | PN ---
PROGRESS NOTE DATE OF SERVICE: 11/24/2020. REASON FOR FOLLOW UP: Enterococcus UTI infection. INTERVAL HISTORY: Patient is currently afebrile. The patient is breathing comfortably. The patient denies having any chest pain, shortness of breath, abdominal pain. Still complaining of urinary burning and frequency, though. PHYSICAL EXAMINATION: Blood pressure 141/76, pulse of 64, temperature 6.5. He is 94% on room air . GENERAL DESCRIPTION: Is an elderly male, lying in bed, in no distress. RESPIRATORY SYSTEM: Unlabored breathing and is clear to auscultation anteriorly. HEART: S1, S2. Regular rate and rhythm. ABDOMEN: Soft, no tenderness. EXTREMITIES: No edema of the feet. LABS: Hemoglobin 11.9, white count 0.3, BUN of 27, creatinine 1.1. DIAGNOSTIC IMPRESSION AND PLAN: Patient admitted in the hospital with urinary symptoms concerning for symptomatic urinary tract infection. Abdominal ultrasound did not show any convincing evidence of hydronephrosis. The patient is covered with Unasyn. With persistent urinary symptoms, will repeat urine culture and monitor clinical course closely. Family at the bedside, questions were answered. MMODL / IJN: [id number] /
[2020-11-24 19:02] LABS: Appearance,Urine Clear (Clear); Bilirubin,Urine Negative (Negative); Blood,Urine Negative (Negative); Color,Urine Dark Yellow; Glucose,Urine (UA) Negative (Negative); Ketones,Urine Negative (Negative); Leukocyte Esterase,Urine Moderate (Negative); Mucus,Urine Rare /hpf; Nitrite,Urine Negative (Negative); Protein,Urine Trace (Negative); RBC,Urine 2 /hpf (0-5); Specific Gravity,Urine 1.021 (1.001-1.035); Urobilinogen,Urine <2.0 mg/dL (<2.0); WBC,Urine 10 /hpf (0-5)
[2020-11-24] MEDS: TAMSULOSIN 0.4 MG CAP.ER.24H PO SCH (22:07)
[2020-11-24] MEDS: CHOLECALCIFEROL 25 MCG (1000 IU) TABLET PO SCH (22:08)
[2020-11-24] MEDS: MELATONIN 5 MG TABLET PO SCH (22:08)
[2020-11-24] MEDS: MULTIVITAMINS, THERA 1 EACH TAB PO SCH (22:08)
[2020-11-25] MEDS: ACETAMINOPHEN TAB 325 MG TAB PO PRN ×2 (00:58→15:18)
[2020-11-25] MEDS: AMPICILLIN-SULBACTAM 3 GM in SODIUM CHLORIDE 0.9% 100 ML IVPB SCH ×5 (00:58→23:42)
[2020-11-25] MEDS: SODIUM CHLORIDE 0.9% 1,000 ML IV SCH ×2 (03:53→17:20)
[2020-11-25 07:25] LABS: Basophils # (A) 0.1 k/uL (0-0.2); Basophils % (A) 1 %; Eosinophils # (A) 0.3 k/uL (0-0.7); Eosinophils % (A) 2 %; HCT 40.9 % (39.0-53.0); HGB 13.7 gm/dL (13.0-17.5); Lymphocytes # (A) 1.3 k/uL (1.0-4.8); Lymphocytes % (A) 11 %; MCH 33.7 pg (25.0-35.0); MCHC 33.5 g/dL (31.0-37.0); MCV 100.5 fL (80.0-100.0); Mean Platelet Volume 7.8; Monocytes # (A) 0.7 k/uL (0-1.0); Monocytes % (A) 5 %; Neutrophils # (A) 9.5 k/uL (1.3-7.7); Neutrophils % (A) 79 %; Platelet Count 387 k/uL (150-450); RBC 4.07 m/uL (4.30-5.90); WBC 12.1 k/uL (3.8-10.6)
[2020-11-25] MEDS ORDERED: PANTOPRAZOLE 40 MG TABLET PO SCH (07:30)
[2020-11-25 07:52] LABS: ALT 70 U/L (4-49); African American GFR (CKD) 83 (>60 ml/min/1.73 sqM); Albumin 3.2 g/dL (3.5-5.0); Albumin/Globulin Ratio 1.1; Anion Gap 8 mmol/L; Blood Urea Nitrogen 19 mg/dL (9-20); Calcium 8.4 mg/dL (8.4-10.2); Carbon Dioxide 25 mmol/L (22-30); Chloride 105 mmol/L (98-107); Globulin 2.8 g/dL; Glucose 98 mg/dL (74-99); Non-African American GFR(CKD) 72 (>60 ml/min/1.73 sqM); Sodium 138 mmol/L (137-145); Total Bilirubin 1.1 mg/dL (0.2-1.3)
[2020-11-25 07:57] LABS: AST 76 U/L (17-59); Potassium 4.6 mmol/L (3.5-5.1)
[2020-11-25 07:58] LABS: Alkaline Phosphatase 208 U/L (38-126)
[2020-11-25] MEDS: hydrALAZINE HCL 25 MG TAB PO SCH ×3 (09:34→23:41)
[2020-11-25] MEDS: METOPROLOL SUCCINATE (ER) 50 MG TAB.ER.24H PO SCH (09:34)
[2020-11-25] MEDS: FAMOTIDINE 20 MG TAB PO SCH (09:35)
[2020-11-25] MEDS: FUROSEMIDE 20 MG TAB PO SCH (09:35)
[2020-11-25] MEDS: allopurinoL 100 MG TAB PO SCH (09:35)
[2020-11-25] MEDS: PHENAZOPYRIDINE 100 MG TAB PO SCH (09:35)
[2020-11-25] MEDS: LEVOTHYROXINE 88 MCG TAB PO SCH (09:36)
[2020-11-25] MEDS: ENOXAPARIN 40 MG/0.4 ML SYRINGE SQ SCH (09:37)
--- NOTE | 2020-11-25 11:50 | P.GSCN ---
History of Present Illness Consult date: 11/24/20 Reason for Consult: UTI, bladder calculus Requesting physician: Denny Vallecillo History of present illness: The patient is an 89-year-old white male with a history of BPH, for which she has taken tamsulosin for approximately 3 years. The patient developed dysuria and urinary frequency and was initially evaluated at [facility] in [place], [place]. A urine culture was obtained, revealing Enterococcus. S ensitivities are unavailable at this time. The patient is currently receiving Augmentin and is feeling better. Renal ultrasound showed no evidence of right hydronephrosis. The left kidney was poorly visualized. Ultrasound of the bladder shows an apparent 1 cm bladder calculus. Ultrasound at [facility] also showed a 1 cm bladder calculus. Review of Systems - Constitutional Denies chills, Denies fever - Genitourinary Reports dysuria, Reports urinary frequency Past Medical History Past Medical History: Diabetes Mellitus, GERD/Reflux, Hyperlipidemia, Hyper tension, Osteoarthritis (OA), Skin Disorder, Thyroid Disorder Additional Past Medical History / Comment(s): rt torn muscle and rotator cuff problem, eczema, gallstones, History of Any Multi-Drug Resistant Organisms: None Reported Past Surgical History: Appendectomy, Bowel Resection, Cholecystectomy, Heart Catheterization Additional Past Surgical History / Comment(s): 1996 colectomy for benign polyp, bilateral cataract removal with lens implants. heart cath 11/02/14 Past Anesthesia/Blood Transfusion Reactions: No Reported Reaction Past Psychological History: No Psychological Hx Reported Additional Psychological History / Comment(s): Pt lives alone. He is independent. He walks 2 miles a day normally. He drives a car. He uses no assistive device or home care agency. Smoking Status: Former smoker Past Alcohol Use History: Occasional Additional Past Alcohol Use History / Comment(s): Pt states he started smoking at age 21 yrs old and quit in 1992. He smoked 1 ppd at most. Pt likes to have one alcoholic beverage a day. Past Drug Use History: None Reported - Past Family History Father Family Medical History: Coronary Artery Disease (CAD) Additional Family Medical History / Comment(s): Father lived to be 89yrs old. He had heart problems. Mother Family Medical History: AFIB Medications and Allergies Home Medications Medication Instructions Recorded Confirmed Type Metoprolol Succinate [Toprol XL] 50 mg PO DAILY 11/02/14 11/22/20 History Multivit-Min/FA/Lycopene/Lut 1 tab PO HS 11/02/14 11/22/20 History [Centrum Silver Tablet] Cholecalciferol [Vitamin D3 (25 1,000 unit PO HS 01/13/19 11/22/20 History Mcg = 1000 Iu)] Levothyroxine Sodium [Synthroid] 88 mcg PO DAILY 01/13/19 11/22/20 History Tamsulosin [Flomax] 0.4 mg PO HS 01/13/19 11/22/20 History hydrALAZINE HCL [Apresoline] 25 mg PO BID 01/13/19 11/22/20 History allopurinoL [Zyloprim] 100 mg PO DAILY 30 Days #30 tab 01/15/19 11/22/20 Rx ALPRAZolam [Xanax] 0.25 mg PO BID PRN 11/22/20 11/22/20 History Famotidine [Pepcid] 20 mg PO BID 11/22/20 11/22/20 History Furosemide [Lasix] 20 mg PO DAILY 11/22/20 11/22/20 History Allergies Allergy/AdvReac Type Severity Reaction Status Date / Time No Known Allergies Allergy Verified 11/22/20 18:53 Surgical - Exam Vital Signs Temp Pulse Resp BP Pulse Ox 98.1 F 95 18 151/75 95 11/22/20 17:33 11/22/20 17:33 11/22/20 17:33 11/22/20 17:33 11/22/20 17:33 - General well developed, well nourished, no distress - Respiratory normal respiratory effort - Abdomen Abdomen: soft, non tender, no guarding, no rigid, no rebound - Genitourinary normal penis with no external lesions, testicles non-tender - Rectum Rectum: normal sphincter tone, no masses, other (Prostate 40 g in size, smooth in consistency) - Psychiatric oriented to time, oriented to person, oriented to place, speech is normal, memory intact Results - Labs 11/25/20 06:53 11/25/20 06:53 Abnormal Lab Results - Last 24 Hours (Table) 11/24/20 11/24/20 Range/Units 05:22 05:22 WBC 11.23 H (4.50-10.00) X 10*3/uL RBC 3.60 L (4.40-5.60) X 10*6/uL Hgb 11.9 L (13.0-17.0) g/dL Hct 36.0 L (39.6-50.0) % MCV 100.0 H (80.0-97.0) fL MCH 33.1 H (27.0-32.0) pg Immature Gran # 0.17 H (0.00-0.04) X 10*3/uL Neutrophils # 8.64 H (1.80-7.70) X 10*3/uL Basophils # 0.12 H (0.00-0.10) X 10*3/uL Est GFR (CKD-EPI)NonAf 59.6 L (60.0-200.0) BUN/Creatinine Ratio 24.55 H (12.00-20.00) Ratio Calcium 7.8 L (8.7-10.3) mg/dL AST 80 H (14-35) U/L ALT 86 H (10-49) U/L Alkaline Phosphatase 196 H (41-126) U/L Total Protein 5.1 L (6.2-8.2) g/dL Albumin 3.00 L (3.80-4.90) g/dL Albumin/Globulin Ratio 1.43 L (1.60-3.17) g/dL Microbiology - Last 24 Hours (Table) 11/22/20 20:01 Blood Culture - Preliminary Blood No Growth after 24 hours 11/22/20 17:58 Urine Culture - Final Urine,Voided Diabetes panel 11/24/20 Range/Units 05:22 Sodium 139 (135-145) mmol/L Potassium 4.3 (3.5-5.5) mmol/L Chloride 107 (96-109) mmol/L Carbon Dioxide 22.8 (21.6-31.8) mmol/L BUN 27.0 (9.0-27.0) mg/dL Creatinine 1.1 (0.6-1.5) mg/dL Glucose 92 (70-110) mg/dL Calcium 7.8 L (8.7-10.3) mg/dL AST 80 H (14-35) U/L ALT 86 H (10-49) U/L Alkaline Phosphatase 196 H (41-126) U/L Total Protein 5.1 L (6.2-8.2) g/dL Albumin 3.00 L (3.80-4.90) g/dL Calcium panel 11/24/20 Range/Units 05:22 Calcium 7.8 L (8.7-10.3) mg/dL Albumin 3.00 L (3.80-4.90) g/dL Pituitary panel 11/24/20 Range/Units 05:22 Sodium 139 (135-145) mmol/L Potassium 4.3 (3.5-5.5) mmol/L Chloride 107 (96-109) mmol/L Carbon Dioxide 22.8 (21.6-31.8) mmol/L BUN 27.0 (9.0-27.0) mg/dL Creatinine 1.1 (0.6-1.5) mg/dL Glucose 92 (70-110) mg/dL Calcium 7.8 L (8.7-10.3) mg/dL Adrenal panel 11/24/20 Range/Units 05:22 Sodium 139 (135-145) mmol/L Potassium 4.3 (3.5-5.5) mmol/L Chloride 107 (96-109) mmol/L Carbon Dioxide 22.8 (21.6-31.8) mmol/L BUN 27.0 (9.0-27.0) mg/dL Creatinine 1.1 (0.6-1.5) mg/dL Glucose 92 (70-110) mg/dL Calcium 7.8 L (8.7-10.3) mg/dL Total Bilirubin 0.7 (0.2-1.2) mg/dL AST 80 H (14-35) U/L ALT 86 H (10-49) U/L Alkaline Phosphatase 196 H (41-126) U/L Total Protein 5.1 L (6.2-8.2) g/dL Albumin 3.00 L (3.80-4.90) g/dL - Imaging US - kidney/bladder: report reviewed, image reviewed Assessment and Plan (1) UTI (urinary tract infection) Current Visit: Yes Status: Acute Code(s): N39.0 - URINARY TRACT INFECTION, SITE NOT SPECIFIED SNOMED Code(s): 45279640 (2) Calculus in bladder Current Visit: Yes Status: Acute Code(s): N21.0 - CALCULUS IN BLADDER SNOMED Code(s): 48036034 (3) Benign prostatic hyperplasia with lower urinary tract symptoms Current Visit: Yes Status: Acute Code(s): N40.1 - BENIGN PROSTATIC HYPERPLASIA WITH LOWER URINARY TRACT SYMP SNOMED Code(s): 327998558 Plan: Continue antibiotics. An attempt will be made to obtain the urine culture result from [facility] to optimize antibiotic therapy. I had a lengthy discussion with the patient and his daughter. He will undergo office cystoscopy to confirm the presence of a bladder calculus, and if this is confirmed he will undergo cystolithotripsy to remove the bladder calculus. I am hopeful that this will further improve his voiding symptoms. Time with Patient: Greater than 30
--- NOTE | 2020-11-25 14:23 | US ---
EXAMINATION TYPE: US liver DATE OF EXAM: 11/25/2020 COMPARISON: 11/06/2014 CLINICAL HISTORY: Elevated liver enzymes. INVENTORY MANAGER NOTES: Elevated liver enzymes gallbladder removed very limited exam due to body habitus an d had to scan intercostally. EXAM MEASUREMENTS: Liver Length: 16.4 cm Gallbladder Wall: Surgically absent CBD: 0.4 cm Right Kidney: 9.0 x 4.8 x 3.7 cm Pancreas: Obscured by bowel gas Liver: Limited due to body habitus. Gallbladder: Surgically absent Evidence for sonographic Javier's sign: No CBD: wnl Right Kidney: Limited due to body habitus IMPRESSION: Extremely limited exam due to patient's body habitus. Interval development of low attenuating hepatic parenchyma suggests edematous changes correlate clini susannah for hepatocellular disease.
--- NOTE | 2020-11-25 14:24 | P.PN ---
Subjective Progress Note Date: 11/25/20 Landy Castillo, is an 89 year old male who presented to [facility] emergency room with a chief complaint of frequency with urination and pain with urination He was evaluated in the emergency room vital examination on presentation revealed a temperature of 98.1 pulse 95 respiration 18 blood pressure 151/75 pulse ox 95% on room air Laboratory data reveals a white blood count of 18.7 hemoglobin 13.4 platelet count 350 sodium 138 potassium 4.8 chloride 104 CO2 26 BUN 33 creatinine 1.22 urine analysis revealed large leukocytes with 43 white blood cells Testing in the emergency room revealed Patient was admitted to medical floor for further evaluation and treatment Past medical history is significant for recent fall with left shoulder injury patient was admitted to a hospital in [place], he had an extensive evaluation there was no evidence of any bone fracture, he had evidence of urinary tract infection, he also had evidence of a bladder calculus measured at 0.91.2 cm, his urine culture was positive for Enterobacter he was treated with IV antibiotic and was sent home without any oral antibiotics, his past medical history is also significant for history of hypertension, history of hyperlipidemia, history of hypothyroidism, history of gout, history of benign prostatic hypertrophy, history of gastroesophageal reflux disease, and history of osteoarthritis On review of systems Patient is alert and oriented 3 in no apparent distress he is complaining of frequency with urination and burning and pain with urination otherwise he denies any complaints there is no fever or chills no headache or dizziness no chest pain no shortness of breath no palpitation no cough no nausea or vomiting no abdominal pain no diarrhea no blood in the stools and no hematuria, there is no weakness or numbness in any of the extremities no change in vision speech or gait. On 11/24/2020 patient's alert and oriented 3. Patient's daughter is at bedside. Antibiotics adjusted to Unasyn per infectious disease with concerns of possible penicillin sensitive pathogen. Urology services have been consulted. At this time patient denies chest pain or shortness breath. Patient denies nausea vomiting or diarrhea. Patient denies any urinary burning or frequency urine. white blood cell improving to 11.23 On 11/25/2020 Patient was seen and examined on the medical floor, he is alert and oriented x 3 in no distress, he is still complaining of burning and pain and frequency with urination otherwise he denies any complaints there is no fever or chills no headache or dizziness no chest pain no shortness of breath no palpitation no cough no nausea or vomiting no abdominal pain no diarrhea no b lood in the stools and no hematuria, there is no weakness or numbness in any of the extremities no change in vision speech or gait. Objective - Vital Signs Vital signs: Vital Signs Temp 97.7 F 11/25/20 11:28 Pulse 72 11/25/20 11:28 Resp 16 11/25/20 11:28 BP 156/70 11/25/20 11:28 Pulse Ox 91 L 11/25/20 11:28 Intake & Output 11/24/20 11/25/20 11/25/20 18:59 06:59 18:59 Output Total 150 Balance -150 Output: Urine 150 Other: Voiding Method Toilet Toilet Toilet Urinal Urinal Urinal # Voids 4 # Bowel Movements 1 - Exam In general patient is alert and oriented x 3 in no distress HEENT head normocephalic and atraumatic Neck is supple no JVD no goiter no lymphadenopathy no carotid bruit Chest examination is clear to auscultation no crackles no wheezing Cardiac exam reveals regular heart sounds S1 and S2 no gallops no murmurs Abdomen is soft nontender no organomegaly with normal bowel sounds Extremity exam reveals no edema no cyanosis or clubbing Neurological examination reveals no gross focal deficits - Labs CBC & Chem 7: 11/25/20 06:53 11/25/20 06:53 Labs: Abnormal Lab Results - Last 24 Hours (Table) 11/24/20 11/25/20 11/25/20 Range/Units Unknown 06:53 06:53 WBC 12.1 H (3.8-10.6) k/uL RBC 4.07 L (4.30-5.90) m/uL MCV 100.5 H (80.0-100.0) fL Neutrophils # 9.5 H (1.3-7.7) k/uL AST 76 H (17-59) U/L ALT 70 H (4-49) U/L Alkaline Phosphatase 208 H (38-126) U/L Total Protein 6.0 L (6.3-8.2) g/dL Albumin 3.2 L (3.5-5.0) g/dL Urine Protein Trace H (Negative) Ur Leukocyte Esterase Moderate H (Negative) Urine WBC 10 H (0-5) /hpf Urine Mucus Rare H (None) /hpf Microbiology - Last 24 Hours (Table) 11/22/20 20:01 Blood Culture - Preliminary Blood No Growth after 48 hours Assessment and Plan Plan: Urinary tract infection, patient was admitted to medical floor he was started on IV Rocephin. Antibiotics adjusted to Unasyn per ID Recent diagnosis with large bladder stone will recheck ultrasound and consult urology Dehydration, with elevated BUN and creatinine was started on IV fluid and monitor closely Recent fall with left sided shoulder and ribs injury no evidence of fractures per evaluation at [facility] Underlying history of hypertension Underlying history of hypothyroidism Underlying history of hyperlipidemia Underlying history of gout History of diabetes mellitus patient used to be on oral hypoglycemic agents currently he is on diet control alone DVT prophylaxis Lovenox. GI prophylaxis Protonix Infectious disease and urology services following Antibiotics adjusted to Unasyn per ID Ultrasound of bladder and renal completed Blood and urine culture ordered
--- NOTE | 2020-11-25 14:36 | PN ---
PROGRESS NOTE DATE OF SERVICE: 11/25/2020 REASON FOR FOLLOWUP: Urinary tract infection. INTERVAL HISTORY: Patient is afebrile. The patient is breathing comfortably. The patient denies having any chest pain, shortness of breath, abdominal pain. Overall, pain on urination has decreased, still has some frequency. No suprapubic pain. No nausea, vomiting or diarrhea. PHYSICAL EXAMINATION: Blood pressure 156/70, the pulse 90, temp 96.3, 91% on room air. GENERAL DESCRIPTION: The patient is an elderly male, lying in bed, in no distress. RESPIRATORY SYSTEM: Unlabored breathing, clear to auscultation anteriorly. HEART: S1, S2. Regular rate and rhythm. ABDOMEN: Soft, no tenderness. LABS: Hemoglobin 13.7, white count 12.1 repeat urine is less looking infected. DIAGNOSTIC IMPRESSION AND PLAN: Patient admitted to the hospital with urinary burning, frequency, concerning for a symptomatic UTI infection. Apparently, the culture done in ( ) hospital was Enterococcus and gram-negative sensitivity. Continue with Unasyn, overall improvement. Hopefully finish therapy with oral Augmentin. Family at the bedside, questions answered. MMODL / IJN: [id number] /
[2020-11-25] MEDS: MELATONIN 5 MG TABLET PO SCH (23:41)
[2020-11-25] MEDS: CHOLECALCIFEROL 25 MCG (1000 IU) TABLET PO SCH (23:41)
[2020-11-25] MEDS: MULTIVITAMINS, THERA 1 EACH TAB PO SCH (23:41)
[2020-11-25] MEDS: TAMSULOSIN 0.4 MG CAP.ER.24H PO SCH (23:42)
[2020-11-26] MEDS: ACETAMINOPHEN TAB 325 MG TAB PO PRN ×3 (01:55→18:08)
[2020-11-26 05:30] LABS: Basophils # (A) 0.1 k/uL (0-0.2); Basophils % (A) 1 %; Eosinophils # (A) 0.3 k/uL (0-0.7); Eosinophils % (A) 2 %; HCT 35.8 % (39.0-53.0); HGB 12.2 gm/dL (13.0-17.5); Lymphocytes # (A) 1.5 k/uL (1.0-4.8); Lymphocytes % (A) 12 %; MCHC 34.2 g/dL (31.0-37.0); MCV 99.5 fL (80.0-100.0); Mean Platelet Volume 7.9; Monocytes # (A) 0.8 k/uL (0-1.0); Monocytes % (A) 6 %; Neutrophils # (A) 9.5 k/uL (1.3-7.7); Neutrophils % (A) 76 %; Platelet Count 364 k/uL (150-450); WBC 12.5 k/uL (3.8-10.6)
[2020-11-26 05:44] LABS: ALT 48 U/L (4-49); AST 45 U/L (17-59); African American GFR (CKD) 69 (>60 ml/min/1.73 sqM); Albumin 2.6 g/dL (3.5-5.0); Alkaline Phosphatase 174 U/L (38-126); Anion Gap 4 mmol/L; Blood Urea Nitrogen 17 mg/dL (9-20); Carbon Dioxide 26 mmol/L (22-30); Chloride 107 mmol/L (98-107); Globulin 2.5 g/dL; Glucose 86 mg/dL (74-99); Non-African American GFR(CKD) 60 (>60 ml/min/1.73 sqM); Sodium 137 mmol/L (137-145); Total Bilirubin 0.7 mg/dL (0.2-1.3); Total Protein 5.1 g/dL (6.3-8.2)
[2020-11-26] MEDS: SODIUM CHLORIDE 0.9% 1,000 ML IV SCH ×2 (05:44→17:19)
[2020-11-26] MEDS: LEVOTHYROXINE 88 MCG TAB PO SCH (06:35)
[2020-11-26] MEDS: AMPICILLIN-SULBACTAM 3 GM in SODIUM CHLORIDE 0.9% 100 ML IVPB SCH ×3 (06:35→17:05)
[2020-11-26] MEDS: hydrALAZINE HCL 25 MG TAB PO SCH ×3 (09:06→21:19)
[2020-11-26] MEDS: allopurinoL 100 MG TAB PO SCH (09:06)
[2020-11-26] MEDS: METOPROLOL SUCCINATE (ER) 50 MG TAB.ER.24H PO SCH (09:06)
[2020-11-26] MEDS: FUROSEMIDE 20 MG TAB PO SCH (09:06)
[2020-11-26] MEDS: FAMOTIDINE 20 MG TAB PO SCH (09:06)
[2020-11-26] MEDS: PHENAZOPYRIDINE 100 MG TAB PO SCH (09:07)
[2020-11-26] MEDS: ENOXAPARIN 40 MG/0.4 ML SYRINGE SQ SCH (09:07)
--- NOTE | 2020-11-26 10:24 | P.PN ---
Subjective Progress Note Date: 11/26/20 Landy Castillo, is an 89 year old male who presented to [facility] emergency room with a chief complaint of frequency with urination and pain with urination He was evaluated in the emergency room vital examination on presentation revealed a temperature of 98.1 pulse 95 respiration 18 blood pressure 151/75 pulse ox 95% on room air Laboratory data reveals a white blood count of 18.7 hemoglobin 13.4 platelet count 350 sodium 138 potassium 4.8 chloride 104 CO2 26 BUN 33 creatinine 1.22 urine analysis revealed large leukocytes with 43 white blood cells Testing in the emergency room revealed Patient was admitted to medical floor for further evaluation and treatment Past medical history is significant for recent fall with left shoulder injury patient was admitted to a hospital in [place], he had an extensive evaluation there was no evidence of any bone fracture, he had evidence of urinary tract infection, he also had evidence of a bladder calculus measured at 0.91.2 cm, his urine culture was positive for Enterobacter he was treated with IV antibiotic and was sent home without any oral antibiotics, his past medical history is also significant for history of hypertension, history of hyperlipidemia, history of hypothyroidism, history of gout, history of benign prostatic hypertrophy, history of gastroesophageal reflux disease, and history of osteoarthritis On review of systems Patient is alert and oriented 3 in no apparent distress he is complaining of frequency with urination and burning and pain with urination otherwise he denies any complaints there is no fever or chills no headache or dizziness no chest pain no shortness of breath no palpitation no cough no nausea or vomiting no abdominal pain no diarrhea no blood in the stools and no hematuria, there is no weakness or numbness in any of the extremities no change in vision speech or gait. On 11/24/2020 patient's alert and oriented 3. Patient's daughter is at bedside. Antibiotics adjusted to Unasyn per infectious disease with concerns of possible penicillin sensitive pathogen. Urology services have been consulted. At this time patient denies chest pain or shortness breath. Patient denies nausea vomiting or diarrhea. Patient denies any urinary burning or frequency urine. white blood cell improving to 11.23 On 11/25/2020 Patient was seen and examined on the medical floor, he is alert and oriented x 3 in no distress, he is still complaining of burning and pain and frequency with urination otherwise he denies any complaints there is no fever or chills no headache or dizziness no chest pain no shortness of breath no palpitation no cough no nausea or vomiting no abdominal pain no diarrhea no b lood in the stools and no hematuria, there is no weakness or numbness in any of the extremities no change in vision speech or gait. On 11/26/2020 patient's alert and oriented 3 resting in bed. Patient remains on IV Unasyn. Urology and infectious disease services are following. Temp 98.1. Heart rate 95, respiratory rate 16, blood pressure 129/72. Pulse ox 98 on room air. This time patient denies chest pain or shortness breath. Patient denies nausea vomiting or diarrhea. Patient denies any urinary burning or frequency Objective - Vital Signs Vital signs: Vital Signs Temp 98.1 F 11/26/20 04:53 Pulse 95 11/26/20 04:53 Resp 16 11/26/20 04:53 BP 129/72 11/26/20 04:53 Pulse Ox 98 11/26/20 04:53 Intake & Output 11/25/20 11/26/20 11/26/20 18:59 06:59 18:59 Intake Total 100 Output Total 150 Balance 100 -150 Intake: Intake, IV Titration 100 Amount Ampicillin-Sulbactam 3 gm 100 In Sodium Chloride 0.9% 100 ml @ 200 mls/hr IVPB Q6HR [facility] Rx#:[id number] Output: Urine 150 Other: Voiding Method Toilet Toilet Urinal Urinal # Voids 1 1 1 - Exam In general patient is alert and oriented x 3 in no distress HEENT head normocephalic and atraumatic Neck is supple no JVD no goiter no lymphadenopathy no carotid bruit Chest examination is clear to auscultation no crackles no wheezing Cardiac exam reveals regular heart sounds S1 and S2 no gallops no murmurs Abdomen is soft nontender no organomegaly with normal bowel sounds Extremity exam reveals no edema no cyanosis or clubbing Neurological examination reveals no gross focal deficits - Labs CBC & Chem 7: 11/26/20 04:57 11/26/20 04:57 Labs: Abnormal Lab Results - Last 24 Hours (Table) 11/26/20 11/26/20 Range/Units 04:57 04:57 WBC 12.5 H (3.8-10.6) k/uL RBC 3.60 L (4.30-5.90) m/uL Hgb 12.2 L (13.0-17.5) gm/dL Hct 35.8 L (39.0-53.0) % Neutrophils # 9.5 H (1.3-7.7) k/uL Calcium 8.0 L (8.4-10.2) mg/dL Alkaline Phosphatase 174 H (38-126) U/L Total Protein 5.1 L (6.3-8.2) g/dL Albumin 2.6 L (3.5-5.0) g/dL Microbiology - Last 24 Hours (Table) 11/22/20 20:01 Blood Culture - Preliminary Blood No Growth after 72 hours Assessment and Plan Plan: Urinary tract infection, patient was admitted to medical floor he was started on IV Rocephin. Antibiotics adjusted to Unasyn per ID Recent diagnosis with large bladder stone will recheck ultrasound and consult urology Dehydration, with elevated BUN and creatinine was started on IV fluid and monitor closely Recent fall with left sided shoulder and ribs injury no evidence of fractures per evaluation at [facility] Underlying history of hypertension Underlying history of hypothyroidism Underlying history of hyperlipidemia Underlying history of gout History of diabetes mellitus patient used to be on oral hypoglycemic agents currently he is on diet control alone Elevated liver enzymes. Liver ultrasound completed showing limited exam interval development of low attenuating hepatic parenchyma to suggest edematous changes correlate clinically for hepatocellular disease. Numbers are trending down DVT prophylaxis Lovenox. GI prophylaxis Protonix Infectious disease and urology services following Antibiotics adjusted to Unasyn per ID Ultrasound of bladder and renal completed Liver ultrasound completed Blood and urine culture ordered
--- NOTE | 2020-11-26 13:24 | P.PN ---
Progress Note - Text Progress Note Date: 11/26/20 The patient is feeling better. He states that his dysuria is improved. He remains afebrile, though his WBC count remains elevated (12.5). The urine culture obtained from [facility] showed an Enterococcus faecalis UTI, sensitive to ampicillin. Once he is felt to be ready for discharge, I would suggest that he be discharged home on oral amoxicillin. Arrangements will be made for him to undergo office cystoscopy in the near future to confirm the presence of a bladder calculus, which if present would be removed endoscopically as an outpatient.
[2020-11-26] MEDS ORDERED: FLUCONAZOLE 100 MG TAB PO ONE (15:00)
[2020-11-26] MEDS: ALPRAZolam 0.25 MG TAB PO PRN (18:08)
[2020-11-26] MEDS: CHOLECALCIFEROL 25 MCG (1000 IU) TABLET PO SCH (21:19)
[2020-11-26] MEDS: MELATONIN 5 MG TABLET PO SCH (21:20)
[2020-11-26] MEDS: MULTIVITAMINS, THERA 1 EACH TAB PO SCH (21:20)
[2020-11-26] MEDS: TAMSULOSIN 0.4 MG CAP.ER.24H PO SCH (21:20)
[2020-11-27] MEDS: ALPRAZolam 0.25 MG TAB PO PRN (01:09)
[2020-11-27] MEDS: ACETAMINOPHEN TAB 325 MG TAB PO PRN (01:13)
[2020-11-27] MEDS: AMPICILLIN-SULBACTAM 3 GM in SODIUM CHLORIDE 0.9% 100 ML IVPB SCH ×3 (01:19→13:19)
[2020-11-27] MEDS: LEVOTHYROXINE 88 MCG TAB PO SCH (06:05)
--- NOTE | 2020-11-27 07:04 | PN ---
PROGRESS NOTE DATE OF SERVICE: 11/26/2020 REASON FOR FOLLOWUP: Urinary tract infection. INTERVAL HISTORY: Patient is afebrile. The patient is breathing comfortably. Pain on micturition has decreased but still has some frequency. No difficulty with urination. No chest pain, shortness of breath or cough. No abdominal pain, no diarrhea per the nursing staff. PHYSICAL EXAMINATION: Blood pressure 122/60 with a pulse of 77, temperature 97.5. He is 93% on room air. General description is an elderly male lying in bed in no distress. Respiratory system: Unlabored breathing, clear to auscultation. Abdomen is soft, no tenderness. LABS: Hemoglobin is 12.1, white count 12.5, BUN of 17, creatinine 1.10. DIAGNOSTIC IMPRESSION AND PLAN: 1. Patient with Enterococcus urinary tract infection on the basis of the culture done. Since has been in the hospital the culture has been negative. Patient is covered with Unasyn, to which the organism was sensitive. To continue and transition to a course of oral Augmentin. 2. Elevated white count in this patient who has been exposed to antibiotic, possible candidiasis. Will add oral Diflucan and repeat CBC tomorrow. MMODL / IJN: [id number] /
[2020-11-27 07:10] LABS: Basophils # (A) 0.1 k/uL (0-0.2); Basophils % (A) 1 %; Eosinophils # (A) 0.3 k/uL (0-0.7); Eosinophils % (A) 2 %; HGB 12.4 gm/dL (13.0-17.5); Lymphocytes # (A) 1.4 k/uL (1.0-4.8); Lymphocytes % (A) 12 %; MCH 33.7 pg (25.0-35.0); MCHC 33.6 g/dL (31.0-37.0); MCV 100.3 fL (80.0-100.0); Mean Platelet Volume 7.9; Monocytes # (A) 0.7 k/uL (0-1.0); Monocytes % (A) 6 %; Neutrophils # (A) 9.1 k/uL (1.3-7.7); Neutrophils % (A) 77 %; Platelet Count 336 k/uL (150-450); RBC 3.69 m/uL (4.30-5.90); WBC 11.8 k/uL (3.8-10.6)
[2020-11-27 07:40] LABS: ALT 39 U/L (4-49); AST 40 U/L (17-59); African American GFR (CKD) 77 (>60 ml/min/1.73 sqM); Albumin 2.6 g/dL (3.5-5.0); Alkaline Phosphatase 163 U/L (38-126); Anion Gap 3 mmol/L; Blood Urea Nitrogen 15 mg/dL (9-20); Calcium 8.2 mg/dL (8.4-10.2); Carbon Dioxide 29 mmol/L (22-30); Chloride 107 mmol/L (98-107); Globulin 2.6 g/dL; Glucose 84 mg/dL (74-99); Non-African American GFR(CKD) 67 (>60 ml/min/1.73 sqM); Sodium 139 mmol/L (137-145); Total Bilirubin 0.5 mg/dL (0.2-1.3); Total Protein 5.2 g/dL (6.3-8.2)
[2020-11-27 08:14] LABS: C Reactive Protein 2.8 mg/dL (<1.0)
[2020-11-27] MEDS ORDERED: FLUCONAZOLE 100 MG TAB PO SCH (09:00)
[2020-11-27] MEDS: FUROSEMIDE 20 MG TAB PO SCH (09:30)
[2020-11-27] MEDS: SODIUM CHLORIDE 0.9% 1,000 ML IV SCH (09:30)
[2020-11-27] MEDS: PHENAZOPYRIDINE 100 MG TAB PO SCH (09:30)
[2020-11-27] MEDS: METOPROLOL SUCCINATE (ER) 50 MG TAB.ER.24H PO SCH (09:30)
[2020-11-27] MEDS: allopurinoL 100 MG TAB PO SCH (09:31)
[2020-11-27] MEDS: FAMOTIDINE 20 MG TAB PO SCH (09:31)
[2020-11-27] MEDS: ENOXAPARIN 40 MG/0.4 ML SYRINGE SQ SCH (09:31)
[2020-11-27] MEDS: hydrALAZINE HCL 25 MG TAB PO SCH ×2 (09:31→16:20)
--- NOTE | 2020-11-27 11:13 | P.PN ---
Progress Note - Text Progress Note Date: 11/27/20 The patient continues to feel better. He states that his dysuria is improved. He remains afebrile, though his WBC count remains elevated (11.8). The urine culture obtained from [facility] showed an Enterococcus faecalis UTI, sensitive to ampicillin. Once he is felt to be ready for discharge, I would suggest that he be discharged home on oral amoxicillin. Arrangements will be made for him to undergo office cystoscopy in the near future to confirm the presence of a bladder calculus, which if present would be removed endoscopically as an outpatient.
[2020-11-27 12:28] VITALS: BP 175/86; PULSE 85; RESP 16; TEMP 97.6
--- NOTE | 2020-11-27 17:54 | P.DS ---
Providers Date of admission: 11/24/20 09:04 Expected date of discharge: 11/27/20 Attending physician: Denny Vallecillo Consults: 11/22/20 19:52 Consult Physician Routine Consulting Provider: Evita Vo Consult Reason/Comments: UTI Do you want consulting provider notified?: Yes 11/23/20 16:09 Consult Physician Routine Consulting Provider: Ben Martinez Consult Reason/Comments: recurrent UTI, bladder stone Do you want consulting provider notified?: Yes Primary care physician: Dennylaith Vallecillo [facility] Course: Diagnoses on discharge: Urinary tract infection, patient was admitted to medical floor he was started on IV Rocephin. Antibiotics adjusted to Unasyn per ID Recent diagnosis with large bladder stone will recheck ultrasound and consult ur ology Dehydration, with elevated BUN and creatinine was started on IV fluid and monitor closely Recent fall with left sided shoulder and ribs injury no evidence of fractures per evaluation at [facility] Underlying history of hypertension Underlying history of hypothyroidism Underlying history of hyperlipidemia Underlying history of gout History of diabetes mellitus patient used to be on oral hypoglycemic agents currently he is on diet control alone Elevated liver enzymes. Liver ultrasound completed showing limited exam interval development of low attenuating hepatic parenchyma to suggest edematous changes correlate clinically for hepatocellular disease. Numbers are trending down Hospital course: Landy Castillo, is an 89 year old male who presented to [facility] emergency room with a chief complaint of frequency with urination and pain with urination He was evaluated in the emergency room vital examination on presentation revealed a temperature of 98.1 pulse 95 respiration 18 blood pressure 151/75 pulse ox 95% on room air Laboratory data reveals a white blood count of 18.7 hemoglobin 13.4 platelet count 350 sodium 138 potassium 4.8 chloride 104 CO2 26 BUN 33 creatinine 1.22 urine analysis revealed large leukocytes with 43 white blood cells Testing in the emergency room revealed Patient was admitted to medical floor for further evaluation and treatment Past medical history is significant for recent fall with left shoulder injury patient was admitted to a hospital in [place], he had an extensive evaluation the re was no evidence of any bone fracture, he had evidence of urinary tract infection, he also had evidence of a bladder calculus measured at 0.91.2 cm, his urine culture was positive for Enterobacter he was treated with IV antibiotic and was sent home without any oral antibiotics, his past medical history is also significant for history of hypertension, history of hyperlipidemia, history of hypothyroidism, history of gout, history of benign prostatic hypertrophy, history of gastroesophageal reflux disease, and history of osteoarthritis On review of systems Patient is alert and oriented 3 in no apparent distress he is complaining of frequency with urination and burning and pain with urination otherwise he denies any complaints there is no fever or chills no headache or dizziness no chest pain no shortness of breath no palpitation no cough no nausea or vomiting no abdominal pain no diarrhea no blood in the stools and no hematuria, there is no weakness or numbness in any of the extremities no change in vision speech or gait. On 11/24/2020 patient's alert and oriented 3. Patient's daughter is at bedside. Antibiotics adjusted to Unasyn per infectious disease with concerns of possible penicillin sensitive pathogen. Urology services have been consulted. At this time patient denies chest pain or shortness breath. Patient denies nausea vomiting or diarrhea. Patient denies any urinary burning or frequency urine. white blood cell improving to 11.23 On 11/25/2020 Patient was seen and examined on the medical floor, he is alert and oriented x 3 in no distress, he is still complaining of burning and pain and frequency with urination otherwise he denies any complaints there is no fever or chills no headache or dizziness no chest pain no shortness of breath no palpitation no cough no nausea or vomiting no abdominal pain no diarrhea no blood in the stools and no hematuria, there is no weakness or numbness in any of the extremities no change in vision speech or gait. On 11/26/2020 patient's alert and oriented 3 resting in bed. Patient remains on IV Unasyn. Urology and infectious disease services are following. Temp 98.1. Heart rate 95, respiratory rate 16, blood pressure 129/72. Pulse ox 98 on room air. This time patient denies chest pain or shortness breath. Patient denies nausea vomiting or diarrhea. Patient denies any urinary burning or frequency Patient Condition at Discharge: Stable Plan - Discharge Summary New Discharge Prescriptions: New Amoxicillin 500 mg PO TID 10 Days #30 capsule hydrALAZINE HCL [Apresoline] 25 mg PO TID tab Fluconazole [Diflucan] 100 mg PO DAILY tab Phenazopyridine [Pyridium] 100 mg PO DAILY tab Continue Metoprolol Succinate [Toprol XL] 50 mg PO DAILY Multivit-Min/FA/Lycopene/Lut [Centrum Silver Tablet] 1 tab PO HS Tamsulosin [Flomax] 0.4 mg PO HS Cholecalciferol [Vitamin D3 (25 Mcg = 1000 Iu)] 1,000 unit PO HS Levothyroxine Sodium [Synthroid] 88 mcg PO DAILY allopurinoL [Zyloprim] 100 mg PO DAILY 30 Days #30 tab ALPRAZolam [Xanax] 0.25 mg PO BID PRN PRN Reason: Anxiety Furosemide [Lasix] 20 mg PO DAILY Famotidine [Pepcid] 20 mg PO BID Discontinued hydrALAZINE HCL [Apresoline] 25 mg PO BID Discharge Medication List Metoprolol Succinate [Toprol XL] 50 mg PO DAILY 11/02/14 [History] Multivit-Min/FA/Lycopene/Lut [Centrum Silver Tablet] 1 tab PO HS 11/02/14 [History] Cholecalciferol [Vitamin D3 (25 Mcg = 1000 Iu)] 1,000 unit PO HS 01/13/19 [History] Levothyroxine Sodium [Synthroid] 88 mcg PO DAILY 01/13/19 [History] Tamsulosin [Flomax] 0.4 mg PO HS 01/13/19 [History] allopurinoL [Zyloprim] 100 mg PO DAILY 30 Days #30 tab 01/15/19 [Rx] ALPRAZolam [Xanax] 0.25 mg PO BID PRN 11/22/20 [History] Famotidine [Pepcid] 20 mg PO BID 11/22/20 [History] Furosemide [Lasix] 20 mg PO DAILY 11/22/20 [History] Amoxicillin 500 mg PO TID 10 Days #30 capsule 11/27/20 [Rx] Fluconazole [Diflucan] 100 mg PO DAILY tab 11/27/20 [Rx] Phenazopyridine [Pyridium] 100 mg PO DAILY tab 11/27/20 [Rx] hydrALAZINE HCL [Apresoline] 25 mg PO TID tab 11/27/20 [Rx] Follow up Appointment(s)/Referral(s): Denny Vallecillo MD [Primary Care Provider] - 1-2 days [facility] Visiting Nurse, [NON-STAFF] - 1 Week Patient Instructions/Handouts: Urinary Tract Infection in Men (DC), Bladder Stones (DC) Discharge Disposition: HOME WITH HOME HEALTH SERVICES
[2020-11-27] MEDS ORDERED: FAMOTIDINE 20 MG TAB PO SCH (21:00)
== END 2020-11-27 17:43 | disposition home health service (06) | DRG 690 ==
LOC: EC 17:19 → 6NMEDSUR 19:51 → OBSVTOIN 11-24 09:04 → 5NMEDONC 11-25 05:16
PROVIDERS: ADMIT Internal Medicine; ATTEND Internal Medicine
DX: N39.0 Urinary tract infection, site not specified (principal); N21.0 Calculus in bladder; E86.0 Dehydration; R94.4 Abnormal results of kidney function studies; E11.22 Type 2 diabetes mellitus with diabetic chronic kidney disease; I12.9 Hypertensive chronic kidney disease with stage 1 through stage 4 chronic kidney disease, or unspecified chronic kidney disease; B95.2 Enterococcus as the cause of diseases classified elsewhere; N18.9 Chronic kidney disease, unspecified; E03.9 Hypothyroidism, unspecified; E78.5 Hyperlipidemia, unspecified; R74.8 Abnormal levels of other serum enzymes; R35.0 Frequency of micturition; K21.9 Gastro-esophageal reflux disease without esophagitis; M19.90 Unspecified osteoarthritis, unspecified site; M10.9 Gout, unspecified; S49.92XA Unspecified injury of left shoulder and upper arm, initial encounter; N40.1 Benign prostatic hyperplasia with lower urinary tract symptoms; Z79.890 Hormone replacement therapy; Z79.899 Other long term (current) drug therapy; Z87.440 Personal history of urinary (tract) infections; Z87.891 Personal history of nicotine dependence; Z96.1 Presence of intraocular lens; Z98.41 Cataract extraction status, right eye; Z98.42 Cataract extraction status, left eye; Z91.81 History of falling; Z90.49 Acquired absence of other specified parts of digestive tract; Z86.010 Personal history of colon polyps
CPT/HCPCS: 36415; 51798; 76705; 76770; 80048; 80053; 81001; 83605; 85025; 86140; 87040; 87086; 99285

== ENCOUNTER 2020-12-07 09:24 | Day surgery (SDC) | payer MEDICARE, BC ==
--- NOTE | 2020-11-30 17:16 | P.GSHP ---
History of Present Illness H&P Date: 11/30/20 Chief Complaint: Bladder tumor The patient is an 89-year-old white male with a history of BPH, for which she has taken tamsulosin for approximately 3 years. The patient developed dysuria and urinary frequency and was initially evaluated at [facility] [place] [facility] in [place], [place]. A urine culture was obtained, revealing Enterococcus. The patient is currently receiving amoxicillin and is feeling better. Renal ultrasound showed no evidence of right hydronephrosis. The left kidney was poorly visualized. Ultrasound of the bladder showed an apparent 1 cm bladder calculus, but cystoscopy revealed trilobar BPH and a small tumor arising from the posterior bladder wall. He comes for resection. - Constitutional Constitutional: Denies fever - Genitourinary (Male) Genitourinary: Reports dysuria, Denies hematuria Past Medical History Past Medical History: Diabetes Mellitus, GERD/Reflux, Hyperlipidemia, Hypertension, Osteoarthritis (OA), Skin Disorder, Thyroid Disorder Additional Past Medical History / Comment(s): rt torn muscle and rotator cuff problem, eczema, gallstones, History of Any Multi-Drug Resistant Organisms: None Reported Past Surgical History: Appendectomy, Bowel Resection, Cholecystectomy, Heart Catheterization Additional Past Surgical History / Comment(s): 1996 colectomy for benign polyp, bilateral cataract removal with lens implants. heart cath 11/02/14 Past Anesthesia/Blood Transfusion Reactions: No Reported Reaction Past Psychological History: No Psychological Hx Reported Additional Psychological History / Comment(s): Pt lives alone. He is independent. He walks 2 miles a day normally. He drives a car. He uses no assistive device or home care agency. Smoking Status: Former smoker Past Alcohol Use History: Occasional Additional Past Alcohol Use History / Comment(s): Pt states he started smoking at age 21 yrs old and quit in 1992. He smoked 1 ppd at most. Pt likes to have one alcoholic beverage a day. Past Drug Use History: None Reported - Past Family History Father Family Medical History: Coronary Artery Disease (CAD) Additional Family Medical History / Comment(s): Father lived to be 89yrs old. He had heart problems. Mother Family Medical History: AFIB Medications and Allergies Home Medications Medication Instructions Recorded Confirmed Type Metoprolol Succinate [Toprol XL] 50 mg PO DAILY 11/02/14 11/22/20 History Multivit-Min/FA/Lycopene/Lut 1 tab PO HS 11/02/14 11/22/20 History [Centrum Silver Tablet] Cholecalciferol [Vitamin D3 (25 1,000 unit PO HS 01/13/19 11/22/20 History Mcg = 1000 Iu)] Levothyroxine Sodium [Synthroid] 88 mcg PO DAILY 01/13/19 11/22/20 History Tamsulosin [Flomax] 0.4 mg PO HS 01/13/19 11/22/20 History allopurinoL [Zyloprim] 100 mg PO DAILY 30 Days #30 tab 01/15/19 11/22/20 Rx ALPRAZolam [Xanax] 0.25 mg PO BID PRN 11/22/20 11/22/20 History Famotidine [Pepcid] 20 mg PO BID 11/22/20 11/22/20 History Furosemide [Lasix] 20 mg PO DAILY 11/22/20 11/22/20 History Amoxicillin 500 mg PO TID 10 Days #30 capsule 11/27/20 Rx Fluconazole [Diflucan] 100 mg PO DAILY tab 11/27/20 Rx Phenazopyridine [Pyridium] 100 mg PO DAILY tab 11/27/20 Rx hydrALAZINE HCL [Apresoline] 25 mg PO TID tab 11/27/20 Rx Allergies Allergy/AdvReac Type Severity Reaction Status Date / Time No Known Allergies Allergy Verified 11/22/20 18:53 Surgical - Exam - General well developed, well nourished, no distress - Respiratory normal respiratory effort - Abdomen Abdomen: soft, non tender, no guarding, no rigid, no rebound - Genitourinary normal penis with no external lesions, testicles non-tender - Psychiatric oriented to time, oriented to person, oriented to place, speech is normal, memory intact Assessment and Plan (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 The procedure then reviewed in detail with the patient and his daughter. They've been made aware of potential risks, which include anesthesia, bleeding, infection, and bladder perforation.
[2020-12-05 18:00] VITALS: BMI 28.7
[~2020-12-07 09:24] MED LIST: AMPICILLIN 2,000 MG in SODIUM CHLORIDE 0.9% 100 ML IVPB PRN; DEXAMETHASONE SOD PHOSPHATE 4 MG/ML 1 ML VIAL IV ONE; HYDROmorphone 0.5 MG/0.5 ML SYRINGE IVP PRN; LACTATED RINGERS 1,000 ML IV SCH; ONDANSETRON 4 MG/2 ML VIAL IVP ONE
[2020-12-07] MEDS ORDERED: ONDANSETRON 4 MG/2 ML VIAL ONE (10:01)
[2020-12-07 10:02] LABS: Glucose,Whole Blood 101 mg/dL (75-99)
[2020-12-07] MEDS ORDERED: SUCCINYLCHOLINE CHLORIDE 100 MG/5 ML SYR IV ONE (11:12)
[2020-12-07] MEDS ORDERED: ePHEDrine SULFATE/0.9% NACL/PF 50 MG/5 ML SYRINGE IV ONE (11:12)
[2020-12-07] MEDS ORDERED: PROPOFOL 10 MG/ML 20 ML VIAL IV ONE (11:12)
[2020-12-07] MEDS ORDERED: fentaNYL (PF) 50 MCG/ML 2 ML AMP ONE (11:12)
[2020-12-07] MEDS ORDERED: LIDOCAINE 1% INJ 10MG/ML (20 ML MDV) ONE (11:12)
--- NOTE | 2020-12-07 12:14 | P.OP ---
Date of Procedure: 12/07/20 Preoperative Diagnosis: Bladder tumor, bladder calculi Postoperative Diagnosis: Same Procedure(s) Performed: Cystoscopy, removal of bladder calculi, TUR-BT (small) Anesthesia: TOMASAA Surgeon: Ben Martinez Estimated Blood Loss (ml): 0 IV fluids (ml): 600 Pathology: other (Left posterior bladder wall tumor) Condition: stable Disposition: PACU Indications for Procedure: The patient is an 89-year-old white male with a history of BPH, for which she has taken tamsulosin for approximately 3 years. The patient developed dysuria and urinary frequency and was initially evaluated at [facility] in [place], [place]. A urine culture was obtained, revealing Enterococcus. The patient is currently receiving amoxicillin and is feeling better. Renal ultrasound showed no evidence of right hydronephrosis. The left kidney was poorly visualized. Ultrasound of the bladder showed an apparent 1 cm bladder calculus, but cystoscopy revealed trilobar BPH and a small tumor arising from the posterior bladder wall along with multiple tiny calculi. He comes for resection and removal of the bladder calculi. Operative Findings: Multiple calculi measuring 1-2 mm in size. 1 cm left posterior bladder wall tumor. Description of Procedure: The patient was taken in the operating room and placed in the dorsal lithotomy position, with his legs supported in Zechariah stirrups. The external genitalia was prepped and draped sterilely. The 25-Japanese ACMI resectoscope sheath was introduced into the bladder. The bladder was inspected. Both ureteral orifices were of normal anatomic location and configuration, and clear urine effluxed from both. The entire bladder was examined, revealing multiple tiny bladder calculi as well as a 1 cm papillary tumor arising from the left posterior bladder wall, cephalad to the left ureteral orifice. The prostate was visually occluded, with a trilobar configuration. Using the cutting loop, the tumor was resected down to the muscle. Excellent hemostasis was attained. The resected tissue was saved and sent for pathologic examination. The bladder was irrigated multiple times, removing all of the bladder calculi. A final look into the bladder showed no residual calculi, no active bleeding, and no evidence of bladder perforation. The resectoscope was removed. The patient tolerated the procedure well and was taken to the recovery room in stable condition.
[2020-12-07 12:21] VITALS: RESP 16; TEMP 96.8
[2020-12-07 12:30] LABS: Glucose,Whole Blood 107 mg/dL (75-99)
[2020-12-07 13:08] VITALS: BP 160/88; PULSE 76
== END 2020-12-07 13:20 | disposition home or self-care (01) ==
LOC: OR 09:24
PROVIDERS: ATTEND Urology
DX: N21.0 Calculus in bladder (principal); D49.4 Neoplasm of unspecified behavior of bladder; B95.2 Enterococcus as the cause of diseases classified elsewhere; I10 Essential (primary) hypertension; E78.5 Hyperlipidemia, unspecified; E11.9 Type 2 diabetes mellitus without complications; E07.9 Disorder of thyroid, unspecified; K21.9 Gastro-esophageal reflux disease without esophagitis; Z79.890 Hormone replacement therapy; Z87.891 Personal history of nicotine dependence
CPT/HCPCS: 52235; 52317; 88307; J1100; J2405; J2001; J3010; J0290; J0330; J2704

== ENCOUNTER 2022-03-19 09:16 | Emergency (ER) | payer MEDICARE, BC ==
[2022-03-19 09:22] VITALS: TEMP 98
--- NOTE | 2022-03-19 10:13 | XR ---
EXAMINATION TYPE: XR chest 2V DATE OF EXAM: 03/19/2022 COMPARISON: 01/13/2019 INDICATION: Dysphagia TECHNIQUE: Single frontal view of the chest is obtained. FINDINGS: The heart size is enlarged. The pulmonary vasculature is normal. Mild increased lung markings are present appear stable from 2019 mat be some pulmonary fibrosis IMPRESSION: 1. Chronic appearing diffuse increased lung markings may be on the basis of pulmonary fibrosis. Suspi cious focal consolidation is not identified. Follow up exams can be performed as clinically indicated .
--- NOTE | 2022-03-19 10:37 | ED ---
General Adult HPI - General Chief complaint: ENT Stated complaint: throat swelling Time Seen by Provider: 03/19/22 09:26 Source: patient, RN notes reviewed, old records reviewed Mode of arrival: ambulatory Limitations: no limitations - History of Present Illness Initial comments: Patient is an 89-year-old male with past medical history remarkable for di abetes, hypertension, renal disease, skin disorder, thyroid disorder, acid reflux who presents emergency Department complaining of somewhat chronic issues with dysphagia. Has noticed chronic issues with swallowing for multiple months to years but has noticed that over the last few weeks it has gotten slightly more serious. Patient's had cancer and had issues with swallowing and he is concerned that something is going on with his esophagus. Attempted to follow-up with GI by his to wait multiple months. Today patient was having a difficult time swallowing his small thyroid pill which is why he presents for further evaluation at this time. States he does occasionally get a discomfort in his chest but he has been tolerating oral intake without any issues. They started a soft diet on him. Seems to be tolerating it well. Patient is concerned for possible obstruction or stricture. Denies any vomiting. Denies nausea. Has still been eating without issue. Denies any difficulty in breathing. Denies any fevers or chills or sick contacts. No other acute complaints at this time. Presents for evaluation of this time. Presents with his daughter who assists with the history.Patient describes that she was swallowing as a dryness in his throat and things appear to get stuck before passing into his stomach as he swallows. - Related Data Home Medications Medication Instructions Recorded Confirmed Metoprolol Succinate [Toprol XL] 50 mg PO DAILY 11/02/14 12/07/20 Multivit-Min/FA/Lycopene/Lut 1 tab PO HS 11/02/14 12/07/20 [Centrum Silver Tablet] Cholecalciferol [Vitamin D3 (25 1,000 unit PO HS 01/13/19 12/07/20 Mcg = 1000 Iu)] Levothyroxine Sodium [Synthroid] 88 mcg PO DAILY 01/13/19 12/07/20 Tamsulosin [Flomax] 0.4 mg PO HS 01/13/19 12/07/20 ALPRAZolam [Xanax] 0.25 mg PO BID PRN 11/22/20 12/07/20 Famotidine [Pepcid] 20 mg PO BID 11/22/20 12/07/20 Furosemide [Lasix] 20 mg PO 1200 11/22/20 12/07/20 Amoxicillin 250 mg PO TID 12/05/20 12/07/20 Finasteride [Proscar] 5 mg PO HS 12/05/20 12/07/20 Previous Rx's Medication Instructions Recorded allopurinoL [Zyloprim] 100 mg PO DAILY 30 Days #30 tab 01/15/19 hydrALAZINE HCL [Apresoline] 25 mg PO TID tab 11/27/20 Allergies Allergy/AdvReac Type Severity Reaction Status Date / Time No Known Allergies Allergy Verified 03/19/22 09:22 Review of Systems ROS Statement: Those systems with pertinent positive or pertinent negative responses have been documented in the HPI. Review of Systems: CONST: Denies fever EYES: Denies blurry vision ENT: Denies nasal congestion C/V: Denies Chest pain RESP: Denies shortness of breath GI: Denies abdominal pain : Denies dysuria SKIN: Denies rash. MSK: Denies joint pain. NEURO: Denies headache ROS Other: All systems not noted in ROS Statement are negative. Past Medical History Past Medical History: Diabetes Mellitus, GERD/Reflux, Hyperlipidemia, Hypertension, Osteoarthritis (OA), Renal Disease, Skin Disorder, Thyroid Disorder Additional Past Medical History / Comment(s): eczema, pulmonary fibrosis- occasional SOB w/exertion, fell recently & still has some bruising left shoulder, recent admission for UTI History of Any Multi-Drug Resistant Organisms: None Reported Past Surgical History: Appendectomy, Bowel Resection, Cholecystectomy, Heart Catheterization Additional Past Surgical History / Comment(s): 1996 colectomy for benign polyp, bilateral cataract removal with lens implants. heart cath 11/02/14 Past Anesthesia/Blood Transfusion Reactions: No Reported Reaction Past Psychological History: No Psychological Hx Reported Smoking Status: Former smoker Past Alcohol Use History: None Reported Past Drug Use History: None Reported - Past Family History Father Family Medical History: Coronary Artery Disease (CAD) Additional Family Medical History / Comment(s): Father lived to be 89yrs old. He had heart problems. Mother Family Medical History: AFIB General Exam - General Exam Comments Initial Comments: General: Appears in no acute distress. HEAD: Normal with no signs of head trauma. EYES: PERRLA, EOMI, conjunctiva normal, no discharge. ENT: Hearing grossly intact, normal oropharynx. No stridor. Normal posterior oropharynx. Uvula midline. No swelling. No tongue swelling. RESPIRATORY: Clear breath sounds bilaterally. No wheezes, rales, or rhonchi. C/V: Regular rate and rhythm. S1 and S2 auscultated, no edema, peripheral pulses 2+ and intact throughout ABD: Abd is soft, nontender, nondistended EXT: Normal range of motion, no obvious deformity SKIN: No rashes or lesions observed on exposed skin. NEURO: Alert and oriented 4. Limitations: no limitations Course Vital Signs 03/19/22 09:20 Temperature 98 F Pulse Rate 92 Respiratory 20 Rate Blood Pressure 129/67 O2 Sat by Pulse 97 Oximetry Medical Decision Making - Medical Decision Making Based on the patient's presentation and physical exam, I'm concerned for what appears to be acute on chronic dysphagia for the patient. This does appear to be a chronic issue that acutely seems to be getting worse over the last 1-2 weeks. Patient has been tolerating oral intake without issue. I do not believe there is an obstruction at this time. He has been eating at home without difficulty. Presented after concern for his thyroid pill getting stuck in the back of his throat but he was able to swallow it eventually. Has been having issues following up with GI due to volumes at the clinic. Was instructed to come here for evaluation. I for obstruction at this time. He is tolerating liquids without difficulty at this time. I did offer him a chest x-ray and we discussed at length the multiple different causes for dysphasia as well as the need for outpatient scoping. He has no indication for emergent scoping or admission for EGD at this time. He expressed understanding. Vital signs within acceptable limits. No acute distress. No respiratory distress. Patient has been tolerating liquids throughout his stay in the department. Chest x-ray shows chronic pulmonary fibrosis but no acute findings. On reevaluation we discussed at length the plan for the patient to follow up outpatient with his PCP and attempt to obtain referral for EGD outpatient. We discussed strict return precautions including vomiting, worsening pain, inability to eat or swallow. He was in agreement with this plan. I answered all questions that they had. We discussed at length using a soft diet, and tempting to eat pillows with food items such as applesauce to help with motility. I instructed the patient to follow up with their PCP in the next 1-3 days. I explained that the patient should return to the emergency department if they experience any worsening symptoms. Strict return precautions were discussed with the patient. The patient expressed understanding of these instructions. I answered all questions that the patient had. The patient was discharged home in good condition with their prescriptions and follow up information. Disposition Clinical Impression: Dysphagia Disposition: HOME SELF-CARE Condition: Good Instructions (If sedation given, give patient instructions): Dysphagia (ED) Is patient prescribed a controlled substance at d/c from ED?: No Referrals: Denny Vallecillo MD [Primary Care Provider] - 1-2 days Time of Disposition: 10:32
[2022-03-19 10:52] VITALS: BP 154/78; PULSE 69; RESP 16
== END 2022-03-19 11:00 | disposition home or self-care (01) ==
LOC: EC 09:16
DX: R13.10 Dysphagia, unspecified (principal); E11.9 Type 2 diabetes mellitus without complications; K21.9 Gastro-esophageal reflux disease without esophagitis; E78.5 Hyperlipidemia, unspecified; M19.90 Unspecified osteoarthritis, unspecified site; I12.9 Hypertensive chronic kidney disease with stage 1 through stage 4 chronic kidney disease, or unspecified chronic kidney disease; N18.9 Chronic kidney disease, unspecified; E07.9 Disorder of thyroid, unspecified; Z87.891 Personal history of nicotine dependence; Z79.890 Hormone replacement therapy; Z79.899 Other long term (current) drug therapy
CPT/HCPCS: 71046; 99284